=== PATIENT | female | born 1955 | race Caucasian/White ===

== ENCOUNTER → 2020-04-12 12:52 | Outpatient (CLI) | payer MEDICARE, SELFPAY ==
--- NOTE | ~2020-04-12 | XR_ITS ---
XR hip RT min 2V DATE: 04/12/2020 13:15 INDICATION: Right hip and groin pain for 3 months TECHNIQUE: AP, lateral, crosstable lateral views of right hip COMPARISON: None FINDINGS: No fracture or dislocation, avascular necrosis or bone destruction of the right hip is evid ent. Right hip joint space appears relatively preserved. The pubic symphysis and right sacroiliac joint are intact. IMPRESSION: No significant abnormality of the right hip Reviewed, dictated and finalized at location A.
== END ==
PROVIDERS: PCP Physician Assistant; Visit Provider Physician Assistant
DX: M25.551 Pain in right hip (principal)
CPT/HCPCS: 73502

== ENCOUNTER → 2020-04-25 14:47 | Outpatient (CLI) | payer MEDICARE, SELFPAY ==
--- NOTE | ~2020-04-25 | MM_ITS ---
EXAMINATION: MM screening chuyita BI w polly HISTORY: Screening mammogram TECHNIQUE: Craniocaudal and mediolateral oblique 3-D tomosynthesis images were obtained and synthetic 2-D images were generated. CAD analysis was submitted and interpreted. COMPARISON: , 10/12/2017, 09/25/2016 bilateral digital screening mammogram examinations BREAST PARENCHYMAL COMPOSITION: There are scattered areas of fibroglandular density. FINDINGS: There is no evidence of suspicious mass, calcification, or architectural distortion to sugg est malignancy in either breast. There has been no suspicious interval change. IMPRESSION: 1. No mammographic evidence of malignancy. 2. Recommend routine screening mammography in one year. BI-RADS Category 1: Negative Reviewed, dictated and finalized at location A.
== END ==
PROVIDERS: PCP Physician Assistant; Visit Provider Physician Assistant
DX: Z12.31 Encounter for screening mammogram for malignant neoplasm of breast (principal)
CPT/HCPCS: 77063; 77067

== ENCOUNTER → 2021-06-23 13:26 | Outpatient (CLI) | payer MEDICARE, SELFPAY ==
--- NOTE | ~2021-06-23 | DEXA_ITS ---
Bone Density Report Name: ACE MIJARES Age: 66 Sex: Female Ethnicity: White Date of : 1955 Indication: postmenopausal; screening for osteoporosis; height loss; hysterectomy; Referring Provider: Juliane Fishman Study: Bone densitometry was performed. Exam Date: June 23, 2021 Accession number: [id number] Bone Density: Region BMD T-score Z-score Classification AP Spine (L1, L4) 1.185 1.3 3.3 Normal Femoral Neck (Left) 0.650 -1.8 -0.2 Osteopenia Total Hip (Left) 0.960 0.1 1.5 Normal Femoral Neck (Right) 0.688 -1.5 0.2 Osteopenia Total Hip (Right) 0.905 -0.3 1.1 Normal Total Hip Mean 0.933 -0.1 1.3 Normal World Health Organization criteria for BMD impression classify patients as: Normal (T-score at or above -1.0), Osteopenia (T-score between -1.0 and -2.5), or Osteoporosis (T-score at or below -2.5). 10-year Fracture Risk(1): Major Osteoporotic Fracture 10% Hip Fracture 1.4% Reported Risk Factors: [place] (), Neck BMD=0.650, BMI=27.3 (1) FRAX(R) Version 3.08. Fracture probability calculated for an untreated patient. Fracture probability may be lower if the patient has received treatment. Previous Exams: Region Exam Age BMD T-score BMD Change BMD Change Date g/cm2 vs Baseline vs Previous AP Spine(L1, L4) 06/23/2021 66 1.185 1.3 0.033* 0.004 04/07/2019 64 1.181 1.3 0.029* -0.054* 04/24/2012 57 1.235 1.8 0.083* 0.083* 05/27/2009 54 1.152 1.0 Total Hip(Left) 06/23/2021 66 0.960 0.1 -0.140* -0.016 04/07/2019 64 0.976 0.3 -0.124* -0.073* 04/24/2012 57 1.049 0.9 -0.051* -0.051* 05/27/2009 54 1.100 1.3 Total Hip(Right) 06/23/2021 66 0.905 -0.3 -0.219* -0.004 04/07/2019 64 0.909 -0.3 -0.215* -0.135* 04/24/2012 57 1.044 0.8 -0.080* -0.080* 05/27/2009 54 1.124 1.5 *Denotes significance at 95% confidence level, LSC for AP Spine = 0.022 g/cm2, LSC for Total Hip = 0.027 g/cm2 Clinical Information Provided by Patient: Has used the following medications: Vitamin D Has the following medical conditions: Hysterectomy Patient maximum height was 64 Menopause Age: 44 Drinks caffeinated beverages Onset of menses at age 12 Number of children 0 Impression: The patient has low bone mass, based on the Left Femor
== END ==
PROVIDERS: PCP Physician Assistant; Visit Provider Obstetrics & Gynecology
DX: Z78.0 Asymptomatic menopausal state (principal); M85.89 Other specified disorders of bone density and structure, multiple sites
CPT/HCPCS: 77080

== ENCOUNTER → 2021-08-15 13:53 | Outpatient (CLI) | payer OTHER, SELFPAY ==
--- NOTE | ~2021-08-15 | MM_ITS ---
EXAMINATION: MM screening chuyita BI w polly HISTORY: Screening TECHNIQUE: Craniocaudal and mediolateral oblique 3-D tomosynthesis images were obtained and synthetic 2-D images were generated. CAD analysis was submitted and interpreted. COMPARISON: Comparison to multiple prior studies sequentially, with oldest reviewed study dated 05/07. BREAST PARENCHYMAL COMPOSITION: There are scattered areas of fibroglandular density. FINDINGS: There is no evidence of suspicious mass, calcification, or architectural distortion to sugg est malignancy in either breast. There has been no suspicious interval change. IMPRESSION: 1. No mammographic evidence of malignancy. 2. Recommend routine screening mammography in one year. BI-RADS Category 1: Negative Reviewed, dictated and finalized at location A. 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
== END ==
PROVIDERS: PCP Physician Assistant; Visit Provider Physician Assistant
DX: Z12.31 Encounter for screening mammogram for malignant neoplasm of breast (principal)
CPT/HCPCS: 77063; 77067

== ENCOUNTER 2021-08-29 01:17 | Day surgery (SDC) | payer OTHER, SELFPAY ==
[2021-08-22 12:43] VITALS: BMI 26.5
[2021-08-29 07:51] VITALS: BP 154/81; PULSE 81; RESP 18; TEMP 36.1; O2SAT 98
[2021-08-29] MEDS: LACTATED RINGERS 1,000 ML 150 ML IV CONT (08:15)
--- NOTE | 2021-08-29 08:26 | WPDGICN ---
Assessment and Plan Assessment and plan (1) Encounter for screening colonoscopy: Code(s): Z12.11 - Encounter for screening for malignant neoplasm of colon Status: Acute Assessment and Plan: Patient presents for screening colonoscopy. She appears to be at average risk for colon polyps. Further recommendations will be given after endoscopy. GI Consult Note Consult date/time: 08/29/21 08:26 HPI: Arabella Newby is a 66 year old female Presents for screening colonoscopy. Patient's current weight appetite and bowel movements are normal. She denies abdominal pain. She has had no bleeding. Family history is noncontributory. Review of Systems Review of Systems: All systems reviewed & are unremarkable except as noted in HPI and below PMFSH Past Medical History Medical History (Updated 08/29/21 @ 08:27 by Ken Olson MD) Calcific tendonitis of left shoulder Diabetes Diarrhea DJD of shoulder Hyperthyroidism Left shoulder pain Vision abnormalities Surgical History Surgical History History of carpal tunnel release Family History Family History Unknown Diabetes mellitus Hypertension Heart disease Social History Social History Smoking status: Never smoker Alcohol intake: current Drinks per week: 6 Substance use: never Substance use type: does not use Living arrangements: alone Gender identity (if verbalized by the patient): Female Spiritual care concerns: No Meds Home Medications and Allergies Home Medications Medication Instructions Recorded Confirmed Type empagliflozin 25 mg tablet 25 mg PO DAILY 03/29/20 08/29/21 History levothyroxine 88 mcg capsule 88 mcg PO DAILY 03/29/20 08/22/21 History rosuvastatin 10 mg sprinkle capsule 10 mg PO DAILY 03/29/20 08/22/21 History estradiol 1 applic VAGINAL 2XW 08/22/21 08/22/21 History Allergies Allergy/AdvReac Type Severity Reaction Status Date / Time No Known Allergies Allergy Verified 08/29/21 07:49 Vital Signs Vital Signs - 24 hr 08/29/21 07:51 Temperature 97 F L Pulse Rate 81 Respiratory Rate 18 Blood Pressure 154/81 H Pulse Oximetry 98 Exam Narrative: Physical exam reveals patient to be alert. Vital signs stable. HEENT exam is unremarkable. Patient is anicteric. Lungs are clear to auscultation and percussion. Heart is without murmur or extra sounds. Abdominal exam bowel sounds are present soft nontender with no organomegaly. Digital external rectal exam is normal.
--- NOTE | 2021-08-29 08:51 | WPDANESEPPF ---
Anes - Initial Pre Proc Eval Procedure: Operation Date: 08/29/21 09:00 Proposed Procedures p Screening Colonoscopy - Ken Olson MD Date/Time: 08/29/21 08:51 Surgeon: Ken Olson MD Pre Op Diagnosis: neoplasm screening Patient Data Age: 66 Gender: F Height: 1.57 m Weight: 66.1 kg Last Vital Signs Temp 97 F L 08/29/21 07:51 Pulse 81 08/29/21 07:51 Resp 18 08/29/21 07:51 BP 154/81 H 08/29/21 07:51 Pulse Ox 98 08/29/21 07:51 Allergies Allergy/AdvReac Type Severity Reaction Status Date / Time No Known Allergies Allergy Verified 08/29/21 07:49 Home Medications Medication Instructions Recorded Confirmed Type empagliflozin 25 mg tablet 25 mg PO DAILY 03/29/20 08/29/21 History levothyroxine 88 mcg capsule 88 mcg PO DAILY 03/29/20 08/22/21 History rosuvastatin 10 mg sprinkle capsule 10 mg PO DAILY 03/29/20 08/22/21 History estradiol 1 applic VAGINAL 2XW 08/22/21 08/22/21 History Patient hx anesthesia problems: none Family hx anesthesia problems: none Results Review: All pre-operative results and documents have been reviewed as part of the pre-operative evaluation. [facility] Past Medical History Medical History (Updated 08/29/21 @ 08:27 by Ken Olson MD) Calcific tendonitis of left shoulder Diabetes Diarrhea DJD of shoulder Hyperthyroidism Left shoulder pain Vision abnormalities Surgical History Surgical History History of carpal tunnel release Family History Family History Unknown Diabetes mellitus Hypertension Heart disease Social History Social History Smoking status: Never smoker Alcohol intake: current Drinks per week: 6 Substance use: never Substance use type: does not use Living arrangements: alone Gender identity (if verbalized by the patient): Female Spiritual care concerns: No Anes - Eval Final PreProcedure Day of Procedure 08/29/21 08:51 Patient weight: overweight Heart: regular rate and rhythm Lungs: clear to auscultation Airway: Mallampati scale class II Neurological: alert and oriented Last oral intake: >/= 8 hours ASA classification: III Emergent: no Anesthetic plan: proceed Anesthesia type and monitoring: general GIVS and standard monitoring Results Review: All pre-operative results and documents have been reviewed as part of the pre-operative evaluation. Informed Consent: The patient's anesthetic plan and its attendant risks and benefits were discussed with the patient/family/POA. Questions were solicited and answers provided to the satisfaction of the patient/family/POA.
[2021-08-29 09:34] VITALS: BP 95/53; PULSE 63; RESP 22; O2SAT 99
[2021-08-29 09:44] VITALS: BP 112/67; PULSE 64; RESP 20; O2SAT 98
[2021-08-29 09:54] VITALS: BP 123/69; PULSE 59; RESP 13; O2SAT 99
[2021-08-29 12:15] LABS: Glucose Point of Care 85 mg/dl (65-105)
== END 2021-08-29 10:02 | disposition home or self-care (01) ==
PROVIDERS: PCP Physician Assistant; Visit Provider Internal Medicine Gastroenterology
PROC: 0DJD8ZZ Inspection of Lower Intestinal Tract, Via Natural or Artificial Opening Endoscopic (ICD-10-PCS; CPT 45378; principal; 2021-08-29 09:00)
DX: Z12.11 Encounter for screening for malignant neoplasm of colon (principal); D12.5 Benign neoplasm of sigmoid colon; K63.5 Polyp of colon; K57.30 Diverticulosis of large intestine without perforation or abscess without bleeding; E11.9 Type 2 diabetes mellitus without complications; E05.90 Thyrotoxicosis, unspecified without thyrotoxic crisis or storm; Z79.84 Long term (current) use of oral hypoglycemic drugs
CPT/HCPCS: 45385; 82948; 88305; J2704; J7120

== ENCOUNTER → 2022-07-17 10:08 | Outpatient (CLI) | payer OTHER, SELFPAY ==
--- NOTE | ~2022-07-17 | XR_ITS ---
AP view of the pelvis Clinical history: Lumbago, sciatica Findings: No acute fracture or dislocation is seen. Osseous alignment is anatomic. Bilateral hip and SI joint spaces are preserved. Soft tissues are unremarkable. Impression: No significant abnormality is seen. Reviewed, dictated and finalized at location [] D TRAFFIC INVESTIGATOR Impression: No significant abnormality is seen.
--- NOTE | ~2022-07-17 | XR_ITS ---
Lumbosacral Spine: AP and lateral views Clinical History: Pain COMPARISON: 05/11/2008 No fracture identified. Probable minimal grade 1 retrolisthesis of L2 over L3. There is severe degene rative disc narrowing at L1-L2 and L2-L3. There are mild to moderate facet joint degenerative changes from L2-S1. The sacroiliac joints are normally outlined. Impression: Minimal grade 1 retrolisthesis of L2 over L3. Degenerative disc and facet joint changes, as detailed above, significantly progressed since prior ex am. Reviewed, dictated and finalized at location [] 7 INTERFACE DEVELOPER Impression: Minimal grade 1 retrolisthesis of L2 over L3. Degenerative disc and facet joint changes, as detailed above, significantly pro gressed since prior exam.
== END ==
PROVIDERS: PCP Physician Assistant; Visit Provider Physician Assistant
DX: M54.41 Lumbago with sciatica, right side (principal); G89.29 Other chronic pain; M48.061 Spinal stenosis, lumbar region without neurogenic claudication
CPT/HCPCS: 72100; 72170

== ENCOUNTER → 2022-10-12 13:12 | Outpatient (CLI) | payer OTHER, SELFPAY ==
--- NOTE | ~2022-10-12 | XR_ITS ---
XR hip RT min 2V DATE: 10/12/2022 13:58 INDICATION: Right hip pain TECHNIQUE: AP and lateral views COMPARISON: 07/17/2022 pelvis 04/12/2020 right hip FINDINGS: There is mild to moderate right hip joint space narrowing. No fracture or dislocation, avas cular necrosis or bone destruction. The pubic symphysis and sacroiliac joints are normally aligned. IMPRESSION: Mild right hip osteoarthritis Reviewed, dictated and finalized at location B. 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
--- NOTE | ~2022-10-12 | MR_ITS ---
MRI of the lumbar spine Clinical History: Back pain Technique: Axial T2-weighted images, and sagittal T1-weighted, T2-weighted, and T2 fat-sat images wer e acquired. COMPARISON: 10/27/2015 Findings: No acute fracture seen. Stable grade 1 retrolisthesis of L2 over L3. Minimal grade 1 retrol isthesis of L3 over L4 is new from prior exam. There are reactive marrow signal changes due to degene rative disc disease, predominantly at the L1-L2, L2-L3, L3-L4 disc spaces. At L1-L2, there is severe degenerative disc narrowing with minimal disc bulge. Facet arthropathy is p resent. No spinal canal stenosis or neural foraminal narrowing. At L2-L3, there is severe degenerative disc narrowing with facet arthropathy. There is minimal thecal sac compression. There is probable bilateral lateral recess stenosis. There is moderate right neural foraminal narrowing and minimal left neural foraminal narrowing. At L3-L4, there is disc bulge and facet arthropathy, with minimal central canal stenosis, as well as bilateral lateral recess stenosis. There is moderate to advanced left neural foraminal narrowing and mild right neural foraminal narrowing. At L4-L5, there is mild disc bulge with advanced facet arthropathy. No spinal canal stenosis or defin ite neural foraminal narrowing. At L5-S1, there is minimal disc bulge and mild facet arthropathy. No spinal canal stenosis or neural foraminal narrowing. Impression: Overall mild degenerative spondylosis, as detailed above. Grade 1 retrolisthesis of L2 over L3, and of L3 over L4. Reviewed, dictated and finalized at [facility]. H TRUCKER Impression: Overall mild degenerative spondylosis, as detailed above. Grade 1 retrolisthesis of L2 over L3, and of L3 over L4.
== END ==
PROVIDERS: PCP Physician Assistant; Visit Provider Anesthesiology Pain Medicine
DX: M54.50 Low back pain, unspecified (principal); M16.11 Unilateral primary osteoarthritis, right hip; M43.06 Spondylolysis, lumbar region
CPT/HCPCS: 72148; 73502

== ENCOUNTER → 2022-10-22 12:04 | Outpatient (CLI) | payer OTHER, SELFPAY ==
--- NOTE | ~2022-10-22 | MM_ITS ---
EXAMINATION: MM screening chuyita BI w polly HISTORY: Screening TECHNIQUE: Craniocaudal and mediolateral oblique 3-D tomosynthesis images were obtained and synthetic 2-D images were generated. CAD analysis was submitted and interpreted. COMPARISON: Comparison to multiple prior studies sequentially, with oldest reviewed study dated 04/2016. BREAST PARENCHYMAL COMPOSITION: Breast composed of scattered areas of fibroglandular density FINDINGS: The right breast is stable without evidence for malignancy. There are developing regional p unctate calcifications which are indeterminate, centered in the upper outer quadrant of the left [address]. IMPRESSION: 1. Developing regional calcifications upper outer quadrant of the left breast anteriorly. 2. Magnification views are recommended. BI-RADS Category 0: Incomplete: Needs additional imaging evaluation. Reviewed, dictated and finalized at location A. IMPRESSION: 1. Developing regional calcifications upper outer quadrant of the left breast a nteriorly. 2. Magnification views are recommended. BI-RADS Category 0: Incomplete: Needs additional imaging evaluation.
== END ==
PROVIDERS: PCP Physician Assistant; Visit Provider Physician Assistant
DX: Z12.31 Encounter for screening mammogram for malignant neoplasm of breast (principal); R92.8 Other abnormal and inconclusive findings on diagnostic imaging of breast
CPT/HCPCS: 77063; 77067

== ENCOUNTER → 2022-11-19 14:10 | Outpatient (CLI) | payer OTHER, SELFPAY ==
--- NOTE | ~2022-11-19 | MM_ITS ---
EXAMINATION: MM diagnostic mammo unilat LT HISTORY: Left breast calcifications on screening mammogram TECHNIQUE: Magnification views of the left breast were performed. CAD analysis was submitted and inte rpreted. COMPARISON: 10/22/2022, 08/15/2021, 04/25/2020 FINDINGS: Magnification views demonstrate grouped and fine linear branching fine pleomorphic calcific ations in the anterior middle third of the upper outer quadrant of the breast at the 1:00 to 2:00 loc ation spanning approximately 5 cm. No associated mass is identified. IMPRESSION: 1. Indeterminate right breast calcifications. 2. Stereotactic left breast biopsy is recommended. BI-RADS category 4, suspicious findings. Reviewed, dictated and finalized at location A.
== END ==
PROVIDERS: PCP Physician Assistant; Visit Provider Physician Assistant
DX: R92.8 Other abnormal and inconclusive findings on diagnostic imaging of breast (principal)
CPT/HCPCS: 77065

== ENCOUNTER → 2023-10-08 13:27 | Outpatient (CLI) | payer OTHER, SELFPAY ==
--- NOTE | ~2023-10-08 | XR_ITS ---
EXAMINATION:XR cervical spine 4-5V DATE: 10/08/2023 13:53 INDICATION: Neck pain TECHNIQUE: AP, lateral, and odontoid views of the cervical spine are provided. COMPARISON: None FINDINGS: There are 2 mm of anterolisthesis of C4 on C5 and 2 mm of retrolisthesis of C5 on C6. There are 4 mm of anterolisthesis of C7 on T1. The odontoid process is intact. No fracture is identified. There is severe loss of intervertebral disc space height at C5-6 and C6-7. The vertebral body heights are maintained. There is multilevel severe facet and uncovertebral joint osteoarthritis. Prevertebra l soft tissues are normal. IMPRESSION: 1. Severe cervical spondylosis without acute findings. Reviewed, dictated and finalized at location B. RER PIPELINE
== END ==
PROVIDERS: PCP Physician Assistant; Visit Provider Physician Assistant
DX: M43.02 Spondylolysis, cervical region (principal)
CPT/HCPCS: 72050

== ENCOUNTER → 2024-11-12 13:04 | Outpatient (CLI) | payer OTHER, SELFPAY ==
--- NOTE | ~2024-11-12 | XR_ITS ---
EXAMINATION: XR chest 2V 11/12/2024 13:42 INDICATION: Cough for 2 weeks PROCEDURE: Two-view chest COMPARISON: No prior studies for comparison. FINDINGS: The lungs are clear. The cardiomediastinal silhouette is within normal limits. There are no pleural effusions. There is no pneumothorax suspected. IMPRESSION: 1: NO ACUTE CARDIOPULMONARY DISEASE. Reviewed, dictated and finalized at location A.
== END ==
PROVIDERS: PCP Physician Assistant; Visit Provider Physician Assistant
DX: R05.9 Cough, unspecified (principal)
CPT/HCPCS: 71046

== ENCOUNTER 2025-01-19 14:05 | Outpatient (CLI) | payer OTHER, SELFPAY ==
--- NOTE | ~2025-01-19 | US_ITS ---
US arterial ankle brachial ind INDICATION: Cold feet. TECHNIQUE: Segmental pressures and plethysmographic and Doppler waveforms of the brachial and lower e xtremity arteries were obtained. COMPARISON: None. FINDINGS: Right and left brachial artery pressures of 158 mm Hg and 128 mm Hg, respectively, are discordant (no rmal difference <= 30 mmHg). The right ankle-brachial index (RAMONA) is 1.03 (normal >= 0.9-1.0). The right great toe-brachial index (TBI) is 0.53 (normal >= 0.60). The left RAMONA is 1.03. The left TBI is 0.54. IMPRESSION: 1. Discordant brachial artery pressures, suspicious for vascular disease. Recommend correlation with CT angiography of the great vessels and upper extremities. 2: Mildly decreased toe brachial indices consistent with peripheral arterial disease. Reviewed, dictated and finalized at location A. IMPRESSION: 1. Discordant brachial artery pressures, suspicious for vascular disease. Recom mend correlation with CT angiography of the great vessels and upper extremities . 2: Mildly decreased toe brachial indices consistent with peripheral arterial di sease.
--- OUTSIDE RECORDS SUMMARY | 2025-01-19 14:57 | XMS_ITS | Encounter Summary ---
Author Organization [facility] Healthcare Address [address] [place] [address] Care Team Providers Care Storage Wharfage Clerk Name Role Phone Renee Melo Primary Care Provider [phone] [place] MD Unavailable [phone] Encounter Details Date Type Department Care Team (Late st Contact Info) Description 11/24/2024 Results Follow-Up [facility] Family Medicine [address] [place] [address] Renee Melo PA [address] [place] [address] XR Chest PA Lateral 2 Views Social History Tobacco Use Types Packs/Day Years Used Date Smoking Tobacco: Never Smokeless Tobacco: Never Alcohol Use Standard Drinks/Week Comments Yes 0 (1 standard drink = 0.6 oz pur e alcohol) AUDIT-C Answer Date Recorded Q1: How often do you have a drink containing alc ohol? 2-4 times a month 11/09/2024 Q2: How many drinks containi ng alcohol do you have on a typical day when you are drinking? 1 or 2 11/09/2024 Q3: How often do you have si x or more drinks on one occasion? Never 11/09/2024 PHQ-2 Answer Date Recorded PHQ-2 Total Score (If total score is 3 or more points, staff should administer the PHQ-9) 0 11/09/2024 Personal Safety Answer Date Recorded Have you ever been in or are you currently in a harmful physical or emotional relationship or is someone making you feel afraid or unsafe? 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 She said she has no questions or concerns. She also wanted JORDON Duran to know she has her breast surgery next week. Does message need to be routed? Yes-FYI Only documented in this encounter Plan of Treatment Not on file documented as of this encounter Goals Goal Patient Goal Type Associated Problems Recent Progress Patient-Stated? Author CCM Chronic Pain Care Plan Chronic Care Management No change(10/01 12:46 PM FARM OPERATIONS TECHNICAL DIRECTOR) No Radha Inman, RN Note: Problem: Chronic Pain Goals: 1. Minimize further functional decline 2. Maximize quality of life 3. Control pain Strategies: - Activity/exercise program recommendation - Conservative stepwise pain medicine strategy with multi-disciplinary approach - Recommend healthy lifestyle strategies and compensatory methods as needed Reduce the likelihood of falling Lifestyle No Radha Inman, RN Note: Below are four things you can do to prevent falls: Begin an exercise program to improve your leg strength & balance Ask your doctor or pharmacist to review your medicines Get annual eye check-ups & update your eyeglasses Make your home safer by: Removing clutter & tripping hazards Putting railings on all stairs & adding grab bars in the bathroom Having good lighting, especially on stairs Contact your local community or senior center for information on exercise, fall prevention programs, or options for improving home safety. documented as of this encounter Visit Diagnoses Not on filedocumented in this encounter Additional Health Concerns Infection Onset Date Last Indicated Resolved Time MDR gram neg/ESBL 10/17/2023 10/17/2023 documented as of this encounter Care Teams Storage Wharfage Clerk Relationship Specialty Start Date End Date Renee Melo PA [address] [facility] [address] [place] [address] PCP - General Internal Medicine 02/16/19 [place] MD [address] [facility] [address] DIV IM [facility], [facility] [address] [place] [address] Surgeon Medical Oncology 09/03/24 documented as of this encounter
--- OUTSIDE RECORDS SUMMARY | 2025-01-19 14:57 | XMS_ITS | Encounter Summary ---
Author Organization [facility] Healthcare Address [address] [place] [address] Care Team Providers Care Volunteer Services Specialist Name Role Phone Renee Melo Primary Care Provider [phone] Reason for Visit * Diagnostic Imaging (Routine) - Closed Specialty Diagnoses / Procedures Referred By Contac t Referred To Contact Procedures Breast Imaging Screening Outside Reference Saurabh Belcher Jr., MD [address] [facility] [id number] [place] [address] Phone: tel: fax: Referral ID Status Reason Start Date Expiration Date Visits Re quested Visits Authorized [id number] Closed 03/21/2023 04/19/2024 1 1 Encounter Details Date Type Department Care Team (Late st Contact Info) Description 04/25/2020 Hospital Encounter [facility] [address] [place] [id number] Social History Tobacco Use Types Packs/Day Years Used Date Smoking Tobacco: Never Smokeless Tobacco: Never Alcohol Use Standard Drinks/Week Comments Yes 0 (1 standard drink = 0.6 oz pur e alcohol) AUDIT-C Answer Date Recorded Q1: How often do you have a drink containing alc ohol? 2-4 times a month 11/30/2024 Q2: How many drinks containi ng alcohol do you have on a typical day when you are drinking? 1 or 2 11/30/2024 Q3: How often do you have si x or more drinks on one occasion? Never 11/30/2024 PHQ-2 Answer Date Recorded PHQ-2 Total Score (If total score is 3 or more points, staff should administer the PHQ-9) 0 11/09/2024 Personal Safety Answer Date Recorded Have you ever been in or are you currently in a harmful physical or emotional relationship or is someone making you feel afraid or unsafe? 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 2-4 times a month 11/30/2024 8:01 AM Ktity Almanzar RN Q2: How many drinks containing alcohol do you have on a typical day when you are drinking? 1 or 2 11/30/2024 8:01 AM Kitty Almanzar RN Q3: How often do you have six or more drinks on one occasion? Never 11/30/2024 8:01 AM Kitty Almanzar RN documented as of this encounter Plan of Treatment Not on file documented as of this encounter Goals Goal Patient Goal Type Associated Problems Recent Progress Patient-Stated? Author CCM Chronic Pain Care Plan Chronic Care Management No change(10/01 12:46 PM [employer]) No Radha Inman RN Note: Problem: Chronic Pain Goals: 1. Minimize further functional decline 2. Maximize quality of life 3. Control pain Strategies: - Activity/exercise program recommendation - Conservative stepwise pain medicine strategy with multi-disciplinary approach - Recommend healthy lifestyle strategies and compensatory methods as needed Reduce the likelihood of falling Lifestyle No Radha Inman RN Note: Below are four things you [...] home safety. documented as of this encounter Procedures Procedure Name Priority Date/Time Associated Diagnosis Comments BREAST IMAGING MG SCREENING OUTSIDE REFERENCE Routine 04/25/2020 12:00 AM CDT documented in this encounter Results * Breast Imaging Screening Outside Reference (04/25/2020 12:00 AM CDT) Impressions RAD_MAMMO[facility] - 03/21/2023 8:38 AM CDT These images are for Reference purposes only and have not been reviewed by [facility] Radiology. There will be no report generated by a [facility] Radiologist. Narrative [facility]_MAMMO[facility] - 03/21/2023 8:38 AM CDT EXAMINATION: Images For Reference Purposes Only us Saurabh Belcher Jr., MD IMG MAMMO PROCEDURES Final Result [facility] documented in this encounter Visit Diagnoses Not on filedocumented in this encounter Additional Health Concerns Infection Onset Date Last Indicated Resolved Time MDR gram neg/ESBL 10/17/2023 10/17/2023 documented as of this encounter Care Teams Volunteer Services Specialist Relationship Specialty Start Date End Date Renee Melo PA [address] [place] [address] PCP - General Internal Medicine 02/16/19 documented as of this encounter
--- OUTSIDE RECORDS SUMMARY | 2025-01-19 14:57 | XMS_ITS | Encounter Summary ---
Author Organization [facility] Healthcare Address [address] [place] [address] Care Team Providers Care Clinical Assessment Manager Name Role Phone Unavailable Primary Care Provider Unavailabl e Reason for Visit * Diagnostic Imaging (Routine) - Closed Specialty Diagnoses / Procedures Referred By Sony t Referred To Contact Procedures Breast Imaging Screening Outside Reference Saurabh Belcher Jr., MD [address] [facility] [id number] [place] [address] Phone: tel: fax: Referral ID Status Reason Start Date Expiration Date Visits Re quested Visits Authorized [id number] Closed 03/21/2023 04/19/2024 1 1 Encounter Details Date Type Department Care Team (Late st Contact Info) Description 11/14/2018 Hospital Encounter [facility] [address] [place], [place] [id number] Social History Tobacco Use Types Packs/Day Years [...] on file Legal Sex Female 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 No / Unsure 10/26/2019 2:50 PM CDT documented as of this encounter Functional Status * Audit-C Score Answer Date of Assessment Author 2 11/30/2024 8:01 AM Pamela Almanzar RN * Question Answer Date of Assessment Author Q1: How often do you have a drink containing alcohol? 2-4 times a month 11/30/2024 8:01 AM Kitty Almanzar RN Q2: How many drinks containing [...] Type Associated Problems Recent Progress Patient-Stated? 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 Minimize further functional decline 2. Maximize quality of life 3. Control pain Strategies: - Activity/exercise program recommendation - Conservative stepwise pain medicine strategy with multi-disciplinary approach - Recommend healthy lifestyle strategies and compensatory methods as needed Reduce the likelihood of falling Lifestyle Radha Cummings RN Note: Below are four things you [...] BREAST IMAGING MG SCREENING OUTSIDE REFERENCE Routine 11/14/2018 12:00 AM CDT documented in this encounter Results * Breast Imaging Screening Outside Reference (11/14/2018 12:00 AM CDT) Impressions [facility] - 03/21/2023 8:38 AM CDT These images are for Reference purposes only and have not been reviewed by [facility] Radiology. There will be no report generated by a [facility] Radiologist. Narrative [facility]_MAMMO[facility] - 03/21/2023 8:38 AM [...]
--- OUTSIDE RECORDS SUMMARY | 2025-01-19 14:57 | XMS_ITS | Clinical Summary ---
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 1.5 mL 3 022 Active Additional Information Patient taking differently: 0.5 mg subcutaneous Weekly, Inject 0.25 mg every 7 days for 4 weeks, then increase to 0.5 mg every 7 days.Saturday mornings, Indications: type 2 diabetes mellitus, Informant: Self, Reported on 11/30/2024 cholecalciferol (VITAMIN D-3) 5,000 unit tabletIndications :Prevention of Vitamin D Deficiency,supple ment Take 1 tablet (5,000 Units total) by mouth every morning Active celecoxib (CeleBREX) 100 mg capsuleIndication s:Osteoarthritis of lumbar spine, unspecified spinal osteoarthritis complication status Take one capsule by mouth at 10am and one capsule at 10 pm 180 capsule 1 025 Active Additional Information Patient taking differently: 100 mg oral 2 times daily, Take one capsule by mouth at 10am and one capsule at 10 pm,Indications: Pain, Informant: Self, Reported on 11/30/2024 simethicone (GAS-X) 125 mg capsuleIndication s:Flatulence Take 1 capsule (125 mg total) by mouth every morning Active DULoxetine DR (CYMBALTA) 60 mg capsuleIndication s:Chronic pain syndrome Take 2 capsules (120 mg total) by mouth daily 180 capsule 1 Active levothyroxine (SYNTHROID) 88 mcg tabletIndications :Acquired hypothyroidism TAKE 1 TABLET BY MOUTH IN THE MORNING BEFORE BREAKFAST 90 tablet 025 Active rosuvastatin (CRESTOR) 40 mg tablet Take 1 tablet by mouth once daily 90 tablet 025 Active oxyCODONE (ROXICODONE) 5 mg immediate release tabletIndications :Pain Take 1 tablet (5 mg total) by mouth every 4 (four) hours as needed for pain 20 tablet 025 2024 Discontinued docusate sodium (DOK) 100 mg tabletIndications :constipation Take 1 tablet (100 mg total) by mouth 2 (two) times a day for 20 days 40 tablet 025 2024 Discontinued azithromycin (ZITHROMAX) 250 mg tablet TAKE 2 TABLETS BY MOUTH ON DAY 1, AND THEN TAKE 1 TABLET BY MOUTH ONCE A DAY ON DAY 2 THROUGH DAY 5 025 2024 Discontinued Active Problems Problem Noted Date Diagnosed Date Acquired absence of breast and absent nipple, bi lateral 11/30/2024 Cold feet 11/22/2024 Assessment & Plan (11/22/2024 8:05 PM CDT): Patient's feet are subjectively cold to her. They do look a little discolored but has good pulses. Denies Raynaud's symptoms. Recommend getting ABIs. Will continue to monitor Annual physical exam 11/22/2024 Assessment & Plan (11/22/2024 8:06 PM CDT): Encouraged healthy lifestyle, good nutrition and exercise. Encouraged Calcium and Vitamin D and weight bearing exercise for bone health. Reviewed immunizations Reviewed age appropirate screenings. Occipital neuralgia 10/01/2024 Myalgia, other site 10/01/2024 Sensorineural hearing loss (SNHL) of both ears 1 08/09/2023 Assessment & Plan (06/09/2024 10:45 AM FURNACE KEEPER): I think her hearing loss is probably due to her familial history as well as some noise exposure and aging. I think she would benefit from hearing aids. We talked quite a bit about that. I recommended that she also talk with our munitions worker. She possibly can get some coverage through her insurance. Tinnitus 05/22/2024 Assessment & Plan (06/09/2024 10:46 AM FURNACE KEEPER): I talked with the patient about tinnitus. Typically it is due to hearing loss but there are other potential reasons for it. It can occur due to cervical strain or TMJ disorder. Also potentially due to tumors which are usually benign. Unfortunately there is no widely accepted or successful treatment for it. There are a lot of twaw-cre-ddteigo remedies which generally do not help and I really do not recommend any of them. In her case I think that the tinnitus is likely due to her hearing loss. Probably would benefit from the use of hearing aids. She understands. She is intending to pursue that. Assessment & Plan (05/22/2024 1:22 PM CDT): This is a significant, separately identifiable problem that was evaluated and managed on the same day as the wellness exam Patient notes bilateral hearing loss that seems to be increasing. She is also noticing increased ringing on the right side. Has not had hearing tests. Will refer to Dr. Khoury's office for audiology evaluation further evaluation of the tendinous BMI 24.0-24.9, adult 05/19/2024 Assessment & Plan (11/09/2024 11:03 AM CDT): Weight/BMI is in healthy range. Continue healthy lifestyle to maintain. Assessment & Plan (09/16/2024 10:34 AM FURNACE KEEPER): Discussed the patient's BMI. The BMI is above average. BMI management plan is completed. BMI Follow-up includes: nutrition counseling, exercise counseling and education provided. Assessment & Plan (05/19/2024 11:32 AM CDT): Weight/BMI is in healthy range. Continue healthy lifestyle to maintain. 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 Assessment & Plan (09/27/2024 4:16 PM FURNACE KEEPER): Patient is having persistent neck pain but do not think she is really taking medications in a distribution that will help most consistently. Recommend the following timing of her pain medications. Follow up in 6-8 weeks to reassess or sooner for any other problems or concerns 10am Celebrex 200 Tylenol 650 Cymbalta 120 Neurontin 400 4pm Tylenol 650 (one or two) 10pm Celebrex 200 Tylenol 650 Neurontin 400 2-4am prn Tylenol 650 Neurontin 400 Assessment & Plan (05/22/2024 1:24 PM CDT): This is a significant, separately identifiable problem that was evaluated and managed on the same day as the wellness exam Persistent neck pain. Continue per pain management. Will increase her gabapentin to 300 b.I.d. to see if this helps with the pain she is also on Cymbalta which may give some relief Assessment & Plan (01/05/2024 1:07 AM CDT): Encouraged NSAIDS (if able to safely tolerate) or Tylenol. Will provide a few Tramadol to use for severe break thru pain. Topical preparations like Lidocaine patches, Biofreeze, ICYHOT etc as needed. Heat, stretching Persistent symptoms after physical therapy. Recommend MRI for further evaluation Infected breast tissue lei maker 10/11/2023 Cervicalgia 10/03/2023 Assessment & Plan (05/22/2024 1:22 PM CDT): This is a significant, separately identifiable problem that was evaluated and managed on the same day as the wellness exam Persistent neck pain. Continue per pain management. Will increase her gabapentin to 300 b.I.d. to see if this helps with the pain she is also on Cymbalta which may give some relief Assessment & Plan (10/03/2023 9:39 PM FURNACE KEEPER): This is a significant, separately identifiable problem that was evaluated and managed on the same day as the wellness exam Patient is complaining of persistent neck pain that really started back in the 70s and has had pain in the neck as well as upper shoulders for years. She is having significant arm and shoulder pain since the mastectomy. She is having pain with rotation flexion-extension of the neck. She has not been taking any type of anti-inflammatory. Recommend starting with neck x-rays and will follow-up pending those results. She could try meloxicam 7.5 daily to see if it begins to give a little relief. Reviewed risks benefits alternatives side effects and proper use. She may benefit from therapy but at this point will hold off until mastectomy heels well. Malignant neoplasm of left f emale breast, unspecified estrogen receptor status, unspecified site of breast 09/21/2023 Assessment & Plan (11/22/2024 8:02 PM CDT): Continue active management of her breast cancer. Mammogram is still being managed by Oncology. Assessment & Plan (05/22/2024 1:21 PM CDT): Patient with breast cancer. Recently diagnosed. Status post left mastectomy and right breast reduction. Healing well from the surgery. Continuing treatment/ Close surveillance with Oncology. Oncology continues to manage the mammogram Carcinoma in situ of left breast 06/03/2023 Medicare annual wellness visit, subsequent 04/23 Assessment & Plan (05/22/2024 1:24 PM CDT): Encouraged healthy lifestyle, good nutrition and exercise. Encouraged Calcium and Vitamin D and weight bearing exercise for bone health. Reviewed immunizations. Reviewed age appropirate screenings. Medicare Wellness Documentation is completed within the chart Assessment & Plan (04/23/2023 8:01 PM CDT): Encouraged healthy lifestyle, good nutrition and exercise. Encouraged Calcium and Vitamin D and weight bearing exercise for bone health. Reviewed immunizations. Reviewed age appropirate screenings. Medicare Wellness Documentation is completed within the chart DCIS (ductal carcinoma in situ) 04/11/2023 Assessment & Plan (10/03/2023 9:37 PM FURNACE KEEPER): Continue per plastics at [facility] and Oncology. She is continuing to heal after her left mastectomy. Assessment & Plan (04/23/2023 7:55 PM CDT): Continue to work with [facility] surgical oncologist as well as plastics for further evaluation and treatment of her DCIS Assessment & Plan (04/11/2023 10:14 PM CDT): Continue per surgeon. She is being referred to specialist at [facility] as she is had persistent positive margins after lumpectomy Chronic pain syndrome 04/11/2023 Assessment & Plan (04/11/2023 10:16 PM CDT): Patient continues to complain of chronic all over pain. She is seen pain management but had to stop when working up the breasts. She is been seeing Dr. Flores for shoulder injections. Discussed Cymbalta for use with chronic pain. Reviewed risks benefits alternatives side effects and proper use. She is willing to try. Will start at 30 mg and titrate up as tolerated. Chronic midline low back pain with right-sided s ciatica 07/08/2022 Assessment & Plan (04/23/2023 7:58 PM CDT): This is a significant, separately identifiable problem that was evaluated and managed on the same day as the wellness exam Patient is seen some improvement with the addition of the Cymbalta 30. Still feels like the room for improvement so will increase to the 60. Continue with pain management She is using tramadol 50mg 1 tablet p.r.n. for breakthrough pain. #30 is lasting her 60-90 days. Patient has chronic pain and is on a chronic opioid. Discussed importance of taking medication as prescribed and pain is currently controlled with no abuse. Continue same dose Do not share medications. Followup for urine drug testing as instructed. Keep followup appointments as instructed. She is already seeing Pain Management. Assessment & Plan (10/24/2022 10:42 PM CDT): This is a significant, separately identifiable problem that was evaluated and managed on the same day as the wellness exam Persistent back pain. Following with pain management. Awaiting MRI results to create a plan. She discussed multiple times how much pain she is in. Discussed that pain management is really utilizing multiple different means of pain control. She does admit to increased stress so discussed adding duloxetine for pain control as well as mood control. She is in favor. Reviewed risks benefits alternatives side effects and proper use. Start 30 mg daily. Follow-up in 6-8 weeks to reassess may increase at that time if appropriate Assessment & Plan (07/08/2022 12:22 AM FURNACE KEEPER): Encouraged NSAIDS (if able to safely tolerate) or Tylenol. Topical preparations like Lidocaine patches, Biofreeze, ICYHOT etc as needed. Heat, stretching Avoid long periods of sitting/laying. Check xrays Encouraged PT and order provided Followup if has any problems controlling bowels or bladder or if sxs worsen. Age-related nuclear cataract of both eyes 2021 Assessment & Plan (06/22/2022 11:28 AM FURNACE KEEPER): Mild, observe. Symptomatic at night time but does not interfere with activities. Fatigue 05/06/2022 Assessment & Plan (09/27/2024 4:15 PM FURNACE KEEPER): Probably multifactorial. Check labs and followup to re-evaluate Assessment & Plan (10/03/2023 9:38 PM FURNACE KEEPER): Probably multifactorial. Check labs and followup to re-evaluate Assessment & Plan (04/11/2023 10:15 PM CDT): Probably multifactorial. Check labs and followup to re-evaluate Assessment & Plan (10/24/2022 10:41 PM CDT): Probably multifactorial. Check labs and followup to re-evaluate Assessment & Plan (05/06/2022 7:25 PM CDT): Probably multifactorial. Check labs and followup to re-evaluate Vitreomacular adhesion of left eye 03/16/2022 Assessment & Plan (06/22/2022 11:34 AM FURNACE KEEPER): VMT with lamellar hole OS Doing well - VA remains excellent and nearly asymptomatic- mild blurry vision OU at night time. 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 These could be age is congenital small drusen and they currently show no features of progression to definitive age-related macular degeneration. PVD (posterior vitreous detachment), bilateral 0 12/15/2021 Assessment & Plan (03/16/2022 11:02 AM CDT): VMT with lamellar hole OS [place] Va will observe do not recommend surgery Amsler Taper PF and stop keto Assessment & Plan (12/15/2021 10:32 AM CDT): She has partial posterior vitreous separations in both eyes with central foveal attachment. In the left eye the foveal attachment is associated with some traction and lamellar schisis changes in the fovea. Given the mild nature of the pathology in the relatively good vision, we will continue observation for now with Amsler grid monitoring. Lamellar macular hole of left eye 11/09/2021 Assessment & Plan (01/18/2023 12:43 PM CDT): VMT with lamellar hole and excellent vision She will monitor with Amsler And see Dr Du Schneider Assessment & Plan (01/26/2022 10:30 AM CDT): VMT OS associated with central cyst. BCVA 20/20 today. Stable OCT today. Cont PF/ketorolac OS 4x/day. Assessment & Plan (12/15/2021 10:33 AM CDT): I have discussed given the vitreomacular traction and the lamella changes possibly treating with prednisolone and ketorolac to see if this might be of some benefit. We will do this for for the next few weeks and repeat an OCT. Assessment & Plan (11/09/2021 1:54 PM CDT): VMT with pseudohole like appearance on OCT. Excellent BCVA today, 20/25 pin hole OS Patient is symptomatic, noticing worsening vision especially at near Educated and reassured patient of findings Will refer to retina for consult RTC with me PRN AMD (age-related macular degeneration), ivonne yang 11/09/2021 Assessment & Plan (10/03/2023 9:37 PM FURNACE KEEPER): Continue per Ophthalmology. Patient states her symptoms have been stable Assessment & Plan (01/26/2022 10:29 AM CDT): Small drusen. Cont observation. Assessment & Plan (11/09/2021 1:58 PM CDT): With very mild drusen OS > OD Extra-macular drusen OU as well No CNVM OU Educated on findings, AREDS Excellent BCVA OU Monitor Osteopenia 06/25/2021 History of UTI 02/25/2020 Assessment & Plan (02/27/2020 8:36 PM CDT): Recheck urine culture Vitamin D deficiency 07/16/2019 Assessment & Plan (11/22/2024 7:57 PM CDT): Supplement Assessment & Plan (10/03/2023 9:37 PM FURNACE KEEPER): Supplement Assessment & Plan (04/11/2023 10:15 PM CDT): Supplement Assessment & Plan (03/02/2021 1:10 PM CDT): supplement Assessment & Plan (08/30/2020 11:00 PM FURNACE KEEPER): supplement Assessment & Plan (02/27/2020 8:36 PM CDT): supplement Assessment & Plan (10/26/2019 4:12 PM CDT): supplement Assessment & Plan (07/19/2019 7:33 PM FURNACE KEEPER): supplement Sciatica of left side 07/16/2019 Assessment & Plan (05/22/2024 1:24 PM CDT): Patient has intermittent sciatica. She is on gabapentin which will help her neck as well as sciatica Assessment & Plan (02/27/2020 8:35 PM CDT): Improved. Will monitor Assessment & Plan (07/19/2019 7:33 PM FURNACE KEEPER): Continue NSAID, even if otc. Offered PT, but she isn't interested. Call if sxs worsen or don't improve. Moderate episode of recurrent major depressive d isorder 03/08/2019 Assessment & Plan (11/22/2024 8:00 PM CDT): Continue Cymbalta 60 mg b.i.d. symptoms are stable Assessment & Plan (05/22/2024 1:20 PM CDT): Stable with Cymbalta Assessment & Plan (10/03/2023 9:37 PM FURNACE KEEPER): Patient's depression symptoms have been stable. She declines returning to any medicine as she has been doing well without it. Assessment & Plan (04/23/2023 7:56 PM CDT): Patient's depression had been pushing towards remission. Still has some mild symptoms we added the Cymbalta for pain control but seems to be also helping with depression and or sleep disturbances as the results of the depression. Will continue with Cymbalta 60 and continue to monitor closely Assessment & Plan (04/11/2023 10:15 PM CDT): Patient's depression has been stable without medication. She is still having quite a bit of pain so will restart Cymbalta for pain. See chronic pain for more information Assessment & Plan (05/06/2022 7:24 PM CDT): Patient's symptoms are still stable without medication. Will continue to monitor. Continue healthy lifestyle. Assessment & Plan (03/02/2021 1:14 PM CDT): Continued stability without medication Assessment & Plan (08/30/2020 11:01 PM FURNACE KEEPER): Still stable without medication Assessment & Plan (02/27/2020 8:38 PM CDT): Stable without medication. Will continue to monitor. Assessment & Plan (10/26/2019 4:11 PM CDT): weened off the antidepressants. Feeling good. Continue to monitor. Assessment & Plan (07/19/2019 7:35 PM FURNACE KEEPER): Stable with Lexapro Assessment & Plan (04/01/2019 9:08 PM CDT): See anxiety Assessment & Plan (03/08/2019 1:18 AM CDT): Discussed depression at length. Will start Lexapro 10mg. Reviewed risks, benefit, alternatives, side effects and proper use. Will provide a very short supply of Xanax to use sparingly until the Lexapro starts to help. Type 2 diabetes mellitus wit h other circulatory complications 03/01/2019 Assessment & Plan (11/22/2024 8:03 PM CDT): Stressed importance of continued A1c control to minimize the termite control service representative effects of diabetes. Bring accuchecks to office when instructed to do so. Check A1c about every 3-6 months. Take medication as prescribed. Get annual eye exam. Encouraged NASIR/Statin if able to tolerate. Encouraged weight control and encouraged diabetic diet and exercise. A1c in October of 2024 was 7.1 See cold feet Patient would like to see a certified adaptive physical educator to assist in diet choices Continue Ozempic 0.5 mg weekly Assessment & Plan (09/27/2024 4:14 PM FURNACE KEEPER): Stressed importance of continued A1c control to minimize the termite control service representative effects of diabetes. Bring accuchecks to office when instructed to do so. Check A1c about every 3-6 months. Take medication as prescribed. Get annual eye exam. Encouraged NASIR/Statin if able to tolerate. Encouraged weight control and encouraged diabetic diet and exercise. Due to check labs. Patient is to continue with her Ozempic 0 0.5 mg q.week Assessment & Plan (05/22/2024 1:20 PM CDT): Encouraged patient to follow low fat/low chol diet like the Mediterranean diet. Increase good fats in the diet. Increase exercise. Monitor labs as needed. Continue Crestor 40 mg Assessment & Plan (10/03/2023 9:38 PM FURNACE KEEPER): Encouraged patient to follow low fat/low chol diet like the Mediterranean diet. Increase good fats in the diet. Increase exercise. Monitor labs as needed. Continue Crestor Assessment & Plan (04/23/2023 7:58 PM CDT): Encouraged patient to follow low fat/low chol diet like the Mediterranean diet. Increase good fats in the diet. Increase exercise. Monitor labs as needed. Stressed importance of continued A1c control to minimize the termite control service representative effects of diabetes. Bring accuchecks to office when instructed to do so. Check A1c about every 3-6 months. Take medication as prescribed. Get annual eye exam. Encouraged NASIR/Statin if able to tolerate. Encouraged weight control and encouraged diabetic diet and exercise. Continue statin and Trulicity 0.75mg/week Assessment & Plan (04/11/2023 10:14 PM CDT): Encouraged patient to follow low fat/low chol diet like the Mediterranean diet. Increase good fats in the diet. Increase exercise. Monitor labs as needed. Continue Crestor Assessment & Plan (10/24/2022 10:40 PM CDT): Encouraged patient to follow low fat/low chol diet like the Mediterranean diet. Increase good fats in the diet. Increase exercise. Monitor labs as needed. Continue Crestor 40 Assessment & Plan (05/06/2022 7:24 PM CDT): Encouraged patient to follow low fat/low chol diet like the Mediterranean diet. Increase good fats in the diet. Increase exercise. Monitor labs as needed. Continue Crestor Assessment & Plan (12/02/2021 8:32 PM CDT): Encouraged patient to follow low fat/low chol diet like the Mediterranean diet. Increase good fats in the diet. Increase exercise. Monitor labs as needed. Continue simvastatin Assessment & Plan (08/26/2021 5:03 PM FURNACE KEEPER): Encouraged patient to follow fat/low chol diet like the Mediterranean diet. Increase good fats in the diet. Increase exercise. Monitor labs as needed. Continue simvastatin 80 Assessment & Plan (03/02/2021 1:14 PM CDT): This is a significant, separately identifiable problem that was evaluated and managed on the same day as the wellness exam Encouraged patient to follow fat/low chol diet like the Mediterranean diet. Increase good fats in the diet. Increase exercise. Monitor labs as needed. Still not well controlled. Stop the simvastatin and change to Crestor. Recheck labs in 4 months. Assessment & Plan (08/30/2020 11:01 PM FURNACE KEEPER): Encouraged patient to follow fat/low chol diet like the Mediterranean diet. Increase good fats in the diet. Increase exercise. Monitor labs as needed. Continue statin Assessment & Plan (02/27/2020 8:38 PM CDT): Encouraged patient to continue low fat/low chol diet. Continue exercise. Increase good fats in the diet. Monitor labs as needed. Continue statin Assessment & Plan (10/26/2019 3:08 PM CDT): Stressed importance of continued A1c control to minimize the termite control service representative effects of diabetes. Bring accuchecks to office when instructed to do so. Check A1c about every 3-6 months. Take medication as prescribed. Get annual eye exam. Encouraged NASIR/Statin if able to tolerate. Encouraged weight control and encouraged diabetic diet and exercise. Continue jardiance. Metformin 1gm bid --- may decrease to one daily Assessment & Plan (07/19/2019 7:35 PM FURNACE KEEPER): Encouraged patient to continue low fat/low chol diet. Continue exercise. Increase good fats in the diet. Monitor labs as needed. Continue statin. Change from crestor to simvastatin due to cost/insurance change. Assessment & Plan (04/01/2019 9:06 PM CDT): Stressed importance of continued A1c control to minimize the fci effects of diabetes. Bring accuchecks to office when instructed to do so. Check A1c about every 3-6 months. Take medication as prescribed. Get annual eye exam. Encouraged NASIR/Statin if able to tolerate. Encouraged weight control and encouraged diabetic diet and exercise. Encouraged patient to continue low fat/low chol diet. Continue exercise. Increase good fats in the diet. Monitor labs as needed. Continue Crestor Type 2 diabetes mellitus wit hout complication, without long-term current use of insulin 12/18/2016 Overview (08/06/2023): improved Assessment & Plan (11/22/2024 8:04 PM CDT): Stressed importance of continued A1c control to minimize the fci effects of diabetes. Bring accuchecks to office when instructed to do so. Check A1c about every 3-6 months. Take medication as prescribed. Get annual eye exam. Encouraged NASIR/Statin if able to tolerate. Encouraged weight control and encouraged diabetic diet and exercise. A1c is well controlled at 7.1 Assessment & Plan (05/22/2024 1:19 PM CDT): Stressed importance of continued A1c control to minimize the termite control service representative effects of diabetes. Bring accuchecks to office when instructed to do so. Check A1c about every 3-6 months. Take medication as prescribed. Get annual eye exam. Encouraged NASIR/Statin if able to tolerate. Encouraged weight control and encouraged diabetic diet and exercise. Tightly controlled with the Ozempic 0.5 mg per week Assessment & Plan (10/03/2023 9:37 PM FURNACE KEEPER): Stressed importance of continued A1c control to minimize the fci effects of diabetes. Bring accuchecks to office when instructed to do so. Check A1c about every 3-6 months. Take medication as prescribed. Get annual eye exam. Encouraged NASIR/Statin if able to tolerate. Encouraged weight control and encouraged diabetic diet and exercise. Last A1c was 6.2 and very tightly controlled on the Ozempic 0.5 mg per week Assessment & Plan (04/23/2023 7:59 PM CDT): Stressed importance of continued A1c control to minimize the fci effects of diabetes. Bring accuchecks to office when instructed to do so. Check A1c about every 3-6 months. Take medication as prescribed. Get annual eye exam. Encouraged NASIR/Statin if able to tolerate. Encouraged weight control and encouraged diabetic diet and exercise. 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 Bring accuchecks to office when instructed to do so. Check A1c about every 3-6 months. Take medication as prescribed. Get annual eye exam. Encouraged NASIR/Statin if able to tolerate. Encouraged weight control and encouraged diabetic diet and exercise. Continue Ozempic 0.5 mg per week. A1c has been at goal. 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 Bring accuchecks to office when instructed to do so. Check A1c about every 3-6 months. Take medication as prescribed. Get annual eye exam. Encouraged NASIR/Statin if able to tolerate. Encouraged weight control and encouraged diabetic diet and exercise. A1c is due. She has been well controlled in the recent past. Continue Ozempic 0.5 weekly Assessment & Plan (05/06/2022 7:25 PM CDT): This is a significant, separately identifiable problem that was evaluated and managed on the same day as the wellness exam Stressed importance of continued A1c control to minimize the fci effects of diabetes. Bring accuchecks to office when instructed to do so. Check A1c about every 3-6 months. Take medication as prescribed. Get annual eye exam. Encouraged NASIR/Statin if able to tolerate. Encouraged weight control and encouraged diabetic diet and exercise. Patient is not tolerating the Jardiance due to yeast infections. She has not tolerated metformin due to GI symptoms. Will start her on Ozempic. Reviewed risks benefits alternatives side effects and proper use. Demonstrated her proper use and she was able to repeat this back. Will send new prescription and also provided paperwork to see if she qualifies for patient assistance. Follow-up in 3 months to recheck labs. 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 Bring accuchecks to office when instructed to do so. Check A1c about every 3-6 months. Take medication as prescribed. Get annual eye exam. Encouraged NASIR/Statin if able to tolerate. Encouraged weight control and encouraged diabetic diet and exercise. Well controlled with the Jardiance 25 mg. Continue to monitor closely Assessment & Plan (08/26/2021 5:03 PM FURNACE KEEPER): Stressed importance of continued A1c control to minimize the fci effects of diabetes. Bring accuchecks to office when instructed to do so. Check A1c about every 3-6 months. Take medication as prescribed. Get annual eye exam. Encouraged NASIR/Statin if able to tolerate. Encouraged weight control and encouraged diabetic diet and exercise. Continue Jardiance 25 Assessment & Plan (03/02/2021 1:09 PM CDT): Stressed importance of continued A1c control to minimize the termite control service representative effects of diabetes. Bring accuchecks to office when instructed to do so. Check A1c about every 3-6 months. Take medication as prescribed. Get annual eye exam. Encouraged NASIR/Statin if able to tolerate. Encouraged weight control and encouraged diabetic diet and exercise. Tightly controlled with Jardiance. If A1c is still great, will completely stop the metformin. Assessment & Plan (08/30/2020 11:03 PM FURNACE KEEPER): This is a significant, separately identifiable problem that was evaluated and managed on the same day as the wellness exam Stressed importance of continued A1c control to minimize the termite control service representative effects of diabetes. Bring accuchecks to office when instructed to do so. Check A1c about every 3-6 months. Take medication as prescribed. Get annual eye exam. Encouraged NASIR/Statin if able to tolerate. Encouraged weight control and encouraged diabetic diet and exercise. Continue jardiance. Decrease the metformin to 500mg daily. Will reassess in 6 months and if still below 7 may be able to stop the metformin and just use the Jardiance. Assessment & Plan (02/27/2020 8:38 PM CDT): Stressed importance of continued A1c control to minimize the termite control service representative effects of diabetes. Bring accuchecks to office when instructed to do so. Check A1c about every 3-6 months. Take medication as prescribed. Get annual eye exam. Encouraged NASIR/Statin if able to tolerate. Encouraged weight control and encouraged diabetic diet and exercise. Has been well controlled. Pt is concerned that the A1c increased slighlty. Reviewed that goal is below 7 and pushing lower doesn't decrease morbidity or mortality. Will await labs. Continue jardiance and MEtformin Assessment & Plan (10/26/2019 4:11 PM CDT): See DM hyperlipidemia. Assessment & Plan (07/19/2019 7:35 PM FURNACE KEEPER): Stressed importance of continued A1c control to minimize the fci effects of diabetes. Bring accuchecks to office when instructed to do so. Check A1c about every 3-6 months. Take medication as prescribed. Get annual eye exam. Encouraged NASIR/Statin if able to tolerate. Encouraged weight control and encouraged diabetic diet and exercise. Check labs. Continue metformin and Jardiance Assessment & Plan (04/01/2019 9:06 PM CDT): Stressed importance of continued A1c control to minimize the termite control service representative effects of diabetes. Bring accuchecks to office when instructed to do so. Check A1c about every 3-6 months. Take medication as prescribed. Get annual eye exam. Encouraged NASIR/Statin if able to tolerate. Encouraged weight control and encouraged diabetic diet and exercise. Acquired hypothyroidism 12/18/2016 Overview (05/24/2023): replaced Assessment & Plan (11/22/2024 8:01 PM CDT): Continue levothyroxine 88 mcg. Monitor labs. Assessment & Plan (09/27/2024 4:15 PM FURNACE KEEPER): Continue levothyroxine 88 mcg. Monitor labs. Assessment & Plan (05/22/2024 1:20 PM CDT): Continue levothyroxine 88 mcg. Monitor labs. Assessment & Plan (10/03/2023 9:38 PM FURNACE KEEPER): Continue levothyroxine. Monitor labs. Assessment & Plan (04/23/2023 7:56 PM CDT): Continue levothyroxine. Monitor labs. Assessment & Plan (04/11/2023 10:14 PM CDT): Continue levothyroxine. Monitor labs. Assessment & Plan (10/24/2022 10:40 PM CDT): Continue levothyroxine. Monitor labs. Assessment & Plan (12/02/2021 8:32 PM CDT): Continue levothyroxine. Monitor labs. Assessment & Plan (08/26/2021 5:03 PM FURNACE KEEPER): Continue levothyroxine Assessment & Plan (03/02/2021 1:10 PM CDT): Continue levothyroxine. Monitor labs. Assessment & Plan (08/30/2020 11:01 PM FURNACE KEEPER): Continue levothyroxine Assessment & Plan (02/27/2020 8:38 PM CDT): Continue replacement. Check labs Assessment & Plan (10/26/2019 3:12 PM CDT): TSh is suppressed. Decreased to 88mcg daily Assessment & Plan (07/19/2019 7:33 PM FURNACE KEEPER): Continue levothyroxine. Check labs Assessment & Plan (04/01/2019 9:05 PM CDT): TSH is stable continue the levothyroxine at 100 mcg Osteoarthritis of lumbar spine 12/18/2016 Overview (08/06/2023): Was seeing [facility] Assessment & Plan (02/27/2020 8:37 PM CDT): Stable after working with [facility] Assessment & Plan (04/01/2019 9:05 PM CDT): Had been following with pain management. She currently is choosing not to. Encouraged to continue anti-inflammatory and use Ultram only sparingly. She is on a combination of Ultram and Soma. Discussed the risks of combining these medications in addition to a benzodiazepine with its black box warning. Discussed alternative to Soma but at this point she will not make any changes. Glycosuria 11/07/2016 Overview (05/24/2023): Glycosuria;Recorded Elsewhere: No Location: [facility] Source: EHR Chronic: N Practice ID: [id number] Billable Time: 11:30:00 AM Menopausal symptom 05/28/2014 Overview (08/06/2023): Menopausal symptoms;Recorded Elsewhere: No Location: [facility] Source: EHR Chronic: N Practice ID: [id number] Billable Time: 01:00:00 PM Assessment & Plan (02/27/2020 8:41 PM CDT): Check DXA Resolved Problems Problem Noted Date Diagnosed Date Resolved Date Acute cough 06/24/2024 09/27/2024 Acute cough 06/24/2024 09/27/2024 Assessment & Plan (06/24/2024 12:20 PM FURNACE KEEPER): Due to length of time will send azithromycin, medrol dose robin and benzonatate to patient pharmacy. If symptoms worsen or do not improve recommend in person evaluation. Patient verbalized understanding and agreed to plan of care at this time. Need for influenza vaccination 05/22/2024 11/22/2024 Aftercare following surgery for neoplasm 01/20/2024 05/22/2024 Positive depression screening 09/17/2023 10/03/2023 Abnormal mammogram 10/24/2022 Assessment & Plan (10/24/2022 10:43 PM CDT): This is a significant, separately identifiable problem that was evaluated and managed on the same day as the wellness exam Abnormal mammogram. Calcifications in the upper-outer quadrant of the left breast. Reviewed these results with patient. Will order diagnostic mammogram with ultrasound to follow if needed. Discussed if negative will return to recommended screenings. If an area is identified and she needs biopsy discussed interventional radiology versus referral to surgeon. She prefers the route of the surgeon. Will await results. BMI 26.0-26.9,adult 05/06/2022 10/25/19 Assessment & Plan (07/08/2022 12:22 AM FURNACE KEEPER): Weight/BMI is in healthy range. Continue healthy lifestyle to maintain. Assessment & Plan (05/06/2022 7:25 PM CDT): Weight/BMI is in healthy range. Continue healthy lifestyle to maintain. Medicare annual wellness visit, subsequent 05/06/2022 10/24/2022 Assessment & Plan (05/06/2022 7:25 PM CDT): Encouraged healthy lifestyle, good nutrition and exercise. Encouraged Calcium and Vitamin D and weight bearing exercise for bone health. Reviewed immunizations. Reviewed age appropirate screenings. Medicare Wellness Documentation is completed within the chart Annual physical exam 08/26/2021 Assessment & Plan (10/03/2023 9:38 PM FURNACE KEEPER): Encouraged healthy lifestyle, good nutrition and exercise. Encouraged Calcium and Vitamin D and weight bearing exercise for bone health. Reviewed immunizations Reviewed age appropirate screenings. Assessment & Plan (10/24/2022 10:41 PM CDT): Encouraged healthy lifestyle, good nutrition and exercise. Encouraged Calcium and Vitamin D and weight bearing exercise for bone health. Reviewed immunizations Reviewed age appropirate screenings. Assessment & Plan (08/26/2021 5:04 PM FURNACE KEEPER): Encouraged healthy lifestyle, good nutrition and exercise. Encouraged Calcium and Vitamin D and weight bearing exercise for bone health. Reviewed immunizations Reviewed age appropirate screenings. Vulvar itching 08/26/2021 10/24/2022 Assessment & Plan (12/02/2021 8:33 PM CDT): Patient has volar itching. Biopsy was done in June of 2021. According to the pathology it it appears as though this could be early lichen sclerosis. Patient states she was put on Lotrisone Estrace cream although the records show she was also put on clobetasol. She states she has never been on clobetasol. Instructed her to go ahead and stop the Lotrisone. She may start the clobetasol apply twice a day to clean skin and do that for the next few months. Will then reassess and if it appears as though improving then may be able to taper it back down. If this does not make a difference then will need to return back to the pastry sous chef for possible re-biopsy to determine why she is not responding to the clobetasol. Assessment & Plan (08/26/2021 7:01 PM FURNACE KEEPER): This is a significant, separately identifiable problem that was evaluated and managed on the same day as the wellness exam Patient has had vulvar itching. Saw the pastry sous chef in a vulvar biopsy was done in June of 2021. The by see showed possible early lichen sclerosis not being able to be ruled out but there was no carcinoma present or atypical lesions. She has not been on clobetasol. The pastry sous chef note alludes to her being on a but patient has not so I am going to start her on clobetasol to the area twice a day to clean skin. Will monitor closely for follow-up in a few months and if not noting improvement may refer to new pastry sous chef and/or consider re-biopsy. BMI 26.0-26.9,adult 03/02/2021 11/14/19 Assessment & Plan (08/26/2021 5:04 PM FURNACE KEEPER): Weight/BMI is in healthy range. Continue healthy lifestyle to maintain. Assessment & Plan (03/02/2021 11:20 AM CDT): Weight/BMI is in healthy range. Continue healthy lifestyle to maintain. Medicare annual wellness visit, subsequent 03/02/2021 08/26/2021 Assessment & Plan (03/02/2021 1:14 PM CDT): Encouraged healthy lifestyle, good nutrition and exercise. Encouraged Calcium and Vitamin D and weight bearing exercise for bone health. Reviewed immunizations. Reviewed age appropirate screenings. Medicare Wellness Documentation is completed within the chart BMI 24.0-24.9, adult 08/30/2020 021 Assessment & Plan (08/30/2020 2:25 PM FURNACE KEEPER): Weight/BMI is in healthy range. Continue healthy lifestyle to maintain. Annual physical exam 08/30/2020 021 Assessment & Plan (08/30/2020 11:01 PM FURNACE KEEPER): Encouraged healthy lifestyle, good nutrition and exercise. Encouraged Calcium and Vitamin D and weight bearing exercise for bone health. Reviewed immunizations Reviewed age appropirate screenings. Chronic left shoulder pain 08/30/2020 1 Assessment & Plan (08/30/2020 11:02 PM FURNACE KEEPER): This is a significant, separately identifiable problem that was evaluated and managed on the same day as the wellness exam Has been seeing Ortho. Had a few injections, but not getting consistent relief. Recommend PT. Order provided. Followup if sxs dont improve. Colon cancer screening 08/30/202010/24 Assessment & Plan (08/26/2021 7:00 PM FURNACE KEEPER): Has colonoscopy scheduled 08/[address] Olson Assessment & Plan (03/02/2021 1:10 PM CDT): Refer to Dr. Eason Assessment & Plan (08/30/2020 11:03 PM FURNACE KEEPER): Screening due with Dr. Olson. Will send referral. Right hip pain 02/27/2020 05/22/2024 Assessment & Plan (02/27/2020 8:40 PM CDT): This is a significant, separately identifiable problem that was evaluated and managed on the same day as the wellness exam New right groin/hip pain. Recommend xray to rule out true hip pain. Await results. Breast cancer screening by mammogram 02/27/2020 04/11/2023 Assessment & Plan (05/06/2022 7:24 PM CDT): Mammogram order provided Assessment & Plan (08/26/2021 5:03 PM FURNACE KEEPER): Mammogram order provided Assessment & Plan (03/02/2021 1:10 PM CDT): Mammogram order provided Assessment & Plan (08/30/2020 11:01 PM FURNACE KEEPER): Mammogram order provided Assessment & Plan (02/27/2020 8:42 PM CDT): Mammogram order provided Welcome to Medicare preventive visit 02/25/2020 08/30/2020 Assessment & Plan (02/27/2020 8:39 PM CDT): Encouraged healthy lifestyle, good nutrition and exercise. Encouraged Calcium and Vitamin D and weight bearing exercise for bone health. Reviewed immunizations. Reviewed age appropirate screenings. Medicare Wellness Documentation is completed within the chart EKG, eye exam and discussion about EOL completed. Breast cancer screening 10/26/201908/06 Assessment & Plan (02/27/2020 8:41 PM CDT): Mammogram order provided Assessment & Plan (10/26/2019 4:12 PM CDT): Mammogram order provided Other fatigue 07/19/2019 10/26/2019 Assessment & Plan (07/19/2019 7:36 PM FURNACE KEEPER): Probably multifactorial. Check labs and followup to re-evaluate Need for Tdap vaccination 04/01/2019 Assessment & Plan (04/01/2019 9:08 PM CDT): Updated in office today Annual physical exam 04/01/2019 019 Assessment & Plan (04/01/2019 9:07 PM CDT): Encouraged healthy lifestyle, good nutrition and exercise. Encouraged Calcium and Vitamin D and weight bearing exercise for bone health. Reviewed immunizations Reviewed age appropirate screenings. Anxiety 03/27/2019 10/26/2019 Assessment & Plan (07/19/2019 7:35 PM FURNACE KEEPER): Continue Lexapro Assessment & Plan (04/01/2019 9:09 PM CDT): This is a significant, separately identifiable problem that was evaluated and managed on the same day as the wellness exam Increase the Lexapro to 20 mg. Increase the BuSpar to 10 mg b.i.d. With an additional 1 available in the middle with a as needed. Encouraged to continue with the counseling. She is to call if she has increased increased symptoms. BMI 24.0-24.9, adult 03/02/2019 024 Overview (04/01/2019): Weight/BMI is in healthy range. Continue healthy lifestyle to maintain. Assessment & Plan (10/03/2023 9:38 PM FURNACE KEEPER): Weight/BMI is in healthy range. Continue healthy lifestyle to maintain. Assessment & Plan (02/27/2020 8:38 PM CDT): Weight/BMI is in healthy range. Continue healthy lifestyle to maintain. Assessment & Plan (10/26/2019 2:55 PM CDT): Weight/BMI is in healthy range. Continue healthy lifestyle to maintain. Weight/BMI is in healthy range. Continue healthy lifestyle to maintain. Assessment & Plan (04/01/2019 9:08 PM CDT): Weight/BMI is in healthy range. Continue healthy lifestyle to maintain. Assessment & Plan (03/02/2019 11:50 AM CDT): Weight/BMI is in healthy range. Continue healthy lifestyle to maintain. Hyperlipidemia 12/18/2016 12/02/2021 Overview (11/09/2021): controlled BMI 25.0-25.9,adult 12/18/2016 05/19/20 24 Assessment & Plan (01/05/2024 1:06 AM CDT): Weight/BMI is in healthy range. Continue healthy lifestyle to maintain. Assessment & Plan (03/25/2023 9:23 AM CDT): Weight/BMI is in healthy range. Continue healthy lifestyle to maintain. Overweight (BMI 25.0-29.9) 12/18/2016 0 09/17/2023 Assessment & Plan (04/23/2023 1:59 PM CDT): Weight/BMI is in healthy range. Continue healthy lifestyle to maintain. Obesity with body mass index 30 or greater 09/20/2015 10/03/2023 Overview (07/30/2023): Body mass index (BMI) 30.0-30.9, adult;Recorded Elsewhere: No Location: [facility] Source: EHR Chronic: N Practice ID: [id number] Billable Time: 03:00:00 PM Assessment & Plan (10/24/2022 1:19 PM CDT): Weight/BMI is in healthy range. Continue healthy lifestyle to maintain. Obesity 05/28/2014 10/03/2023 Overview (07/30/2023): Obesity, unspecified;Practice ID: [id number] Assessment & Plan (11/13/2021 9:44 AM CDT): Weight/BMI is in healthy range. Continue healthy lifestyle to maintain. Encounters Date Type Department Care Team Description 01/15/2025 Telephone [facility] [address] [place] [address] Renee Melo PA Medical Question/Miscellaneou s 01/14/2025 1:00 PM CDT Clinical Support [facility] [address] [place] [address] [id number] Type 2 diabetes mellitus without complication, without long-term current use of insulin (HCC) (Primary Dx) 01/01/2025 9:30 AM CDT Office Visit [facility] [address] [place] [address] Medicine 6th [place] [address] Josiah Reid MD Deformity of reconstructed breast (Primary Dx); Malignant neoplasm of left female breast, unspecified estrogen receptor status, unspecified site of breast (HCC) 12/16/2024 11:00 AM CDT Office Visit [facility] Medicine 6th [place] [phone] Malignant neoplasm of left female breast, unspecified estrogen receptor status, unspecified site of breast (HCC) (Primary Dx) 12/04/2024 Telephone [facility] [place] [address] Renee Melo PA Followup from recent sugery 11/30/2024 10:22 AM CDT Anesthesia Event [facility] Operating [facility] [address] [place] [phone] YoanaJean chapa MD McGowan, Jessica Lynn, NP 11/30/2024 10:10 AM CDT - 11/30/2024 1:15 PM CDT Surgery [facility] Operating Room [facility] [address] [place] [address] Josiah Reid MD REVISION BREAST LEFT 11/30/2024 7:35 AM CDT - 12/01/2024 2:51 PM CDT Hospital Encounter [facility] [address] [facility] [place] [address] Josiah Reid MD S/P breast reconstruction; Deformity and disproportion of reconstructed breast; Infection of breast tissue lei maker, subsequent encounter; Malignant neoplasm of left female breast, unspecified estrogen receptor status, unspecified site of breast (HCC); Acquired absence of left breast; Ductal carcinoma in situ (DCIS) of breast, unspecified laterality; Ductal carcinoma in situ (DCIS) of left breast Discharge Disposition: Discharge to home or self care 11/30/2024 Telephone [facility] [address] [place] [address] Road [address] [place] [phone] Renee Melo PA 11/27/2024 Telephone [facility] 6th [place] [address] Rosalina Lott Surgery Confirmation 11/24/2024 Results Follow-Up [facility] [address] [place] [phone] Renee Melo PA XR Chest PA Lateral 2 Views 11/12/2024 Telephone [facility] Medicine [address] [place] [address] Road [address] [place] [phone] Renee Melo PA Medical Question/Miscellaneou s 11/12/2024 Orders Only [facility] Medicine [address] [place] [address] Road [address] [place] [phone] Renee Melo PA Acute cough (Primary Dx) 11/09/2024 11:00 AM CDT Office Visit [facility] [address] [place] [address] Renee Melo PA Annual physical exam (Primary Dx); Type 2 diabetes mellitus without complication, without long-term current use of insulin (HCC); Cold feet; Type 2 diabetes mellitus with other circulatory complications (HCC); Malignant neoplasm of left female breast, unspecified estrogen receptor status, unspecified site of breast (HCC); Acquired hypothyroidism; Moderate episode of recurrent major depressive disorder (HCC); Vitamin D deficiency; Cervical myelopathy (HCC); BMI 24.0-24.9, adult 10/29/2024 Orders Only [facility] [address] [facility] [address] [place] [address] Saurabh Belcher Jr., MD Abnormal mammogram (Primary Dx) from Last 3 Months Immunizations Immunization Administration Dates Next Due Influenza, Quadrivalent, Hig h Dose, Preservative Free, Intrr 04/23/2022,05/31/2021,04/19/2020 Influenza, Quadrivalent, Spl it, Preservative Free, Intramuscular 06/02/2018 Influenza, Trivalent, High D ose, Split, Preservative Free, Intramuscular 05/19/2024,05/26/2019 Influenza, Unspecified 05/14/2023,2021,08/05/2021,05/31,07/04/2017 Moderna Sars-cov-2 Monovalen t Booster Vaccination (12+ YRS) 08/28/2023 Pfizer SARS-CoV-2 Monovalent Vaccination (12+ Yrs) STERN-READY TO USE 11/09/2021 Pfizer SARS-CoV-2 Monovalent Vaccination (12+ Yrs) PURPLE 05/31/2021,10/18/2020,09/26/2020 Pfizer Sars-Cov-2 Bivalent V accination (12+ YRS) 04/23/2022 Pneumococcal Conjugate PCV 13 05/26/2019 Pneumococcal Polysaccharide PPV23 08/01/2020 RSV Vaccine, Pref, Recombina nt, Subunit, Adjuvanted, PF, IM (Arexvy) 08/28/2023 Tdap 04/01/2019 ZOSTER Recombinant 02/07/2019,11/19/2018 Surgical History Surgery Date Site/Laterality Comments HYSTERECTOMY 07/05/2000 - 08/04/2000 CARPAL TUNNEL RELEASE 08/2009, 10/2009 Bilateral BREAST LUMPECTOMY 01/09/2023 Left BREAST LUMPECTOMY 02/18/2023 Left re-excision PLANTAR FASCIA RELEASE 08/05/1993 - 08/04/1994 Left INSERTION OF TISSUE BROOCH AND BRACELET MAKER AFTER MASTECTOMY 07/05/2023 - 08/04/2023 Left US GUIDED ASPIRATION ABSCESS HEMATOMA CYST SOFT TISSUE 09/19/2023 MASTECTOMY 07/05/2023 Left Medical History Medical History Date Comments Diabetes mellitus (HCC) Arthritis Thyroid disease Type 2 diabetes mellitus (HCC) PONV (postoperative nausea and vomiting) does OK with pre-treatment Cancer (HCC) Anxiety Cervical stenosis (uterine cervix) Ear problems HL (hearing loss) Family History Medical History Relation Name Comments Diabetes Brother Roshan Quevedo Hyperlipidemia Brother Roshan Quevedo Hypertension Brother Roshan Quevedo Cancer Father Michi Quevedo Hyperlipidemia Father Michi Quevedo Colon cancer Maternal Grandmother Huma Sinclair Diabetes Maternal Grandmother Huma Sinclair Hypertension Maternal Grandmother Huma Sinclair Cancer Mother Rosalina Quevedo Diabetes Mother Rosalina Quevedo Hypertension Mother Rosalina Quevedo Liver cancer Mother Rosalina Quevedo Lung cancer Mother Rosalina Quevedo Anesthesia problems Neg Hx Relation Name Status Comments Brother Roshan Quevedo Father Michi Quevedo Maternal Grandmother Huma Sinclair Mother Rosalina Quevedo Social History Tobacco Use Types Packs/Day Years Used Date Smoking Tobacco: Never Smokeless Tobacco: Never Tobacco Cessation:Counseling Given: No Alcohol Use Standard Drinks/Week Comments Yes 0 [...] on file 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 Gender Identity Female 10/19/2019 9:11 AM CDT Sexual Orientation Not on file Occupation Industry Job Start Date Job End Date Retired Not on file Not on file Not on file Obstetrics History Para Term AB IAB SAB Ectopic Multiple Livin g Live Births 0 0 0 0 0 0 0 0 0 0 0 Last Filed Vital Signs Vital Sign Reading Time Taken Comments Blood Pressure 105/52 12/01/2024 7:39 AM CDT Pulse 77 12/01/2024 7:39 AM CDT Temperature 36.7 C (98.1 F) 12/01/2024 7:39 AM CDT Respiratory Rate 19 12/01/2024 7:39 AM CDT Oxygen Saturation 95% 12/01/2024 7:39 AM CDT Inhaled Oxygen Concentration - - Weight 63.4 kg (139 lb 12.8 oz) 01/14/2025 4:17 PM CDT Height 162.6 cm (5' 4.02) 01/14/2025 4:17 PM CD T Body Mass Index 23.98 01/14/2025 4:17 PM CDT Plan of Treatment Health Maintenance Due Date Last Done Comments Hepatitis C Screening 1955 Hepatitis B Screening 01/24/1972 Foot Exam 08/30/2021 08/30/2020, 04/01/2019 Covid-19 Vaccine (2023-09 5 season) 2024 08/28/2023, 08/28/2023, 04/23/2022, Additional history exists Osteoporosis Screening-Bone Density Scan 06/23/2024 06/23/2021, 06/23/2021, 04/07/2019 Breast Cancer Screening-Mammogram 03/05/2025 03/05/2024, 10/22/2022, 08/15/2021, Additional history exists Hemoglobin A1C 04/15/2025 10/13/2024, 07/, 10/21/2023, Additional history exists Albumin Creatinine Ratio, Urine 10/13/2025 10/13/2024, 10/21/2023, 04/04/2023, Additional history exists Lipid Panel 10/13/2025 10/13/2024, 03/05, 04/04/2023, Additional history exists eGFR 10/13/2025 10/13/2024, 03/05, 03/03/2024, Additional history exists Dilated Eye Exam 11/05/2025 11/05/2024, 09/2023, 01/18/2023, Additional history exists Depression Screening 11/09/2025 11/09/2024, 09/16/2024, 05/19/2024, Additional history exists Well Visit 65+ 11/09/2025 11/09/2024, 05/05, 09/17/2023, Additional history exists Fall Risk Assessment 12/01/2025 12/01/2024, 11/09/2024, 09/16/2024, Additional history exists Colon Cancer Screening-Colonoscopy 08/31/2026 08/31/2021, 08/29/2021, 08/29/2021, Additional history exists DTaP/Tdap/Td Vaccine (2 - Td or Tdap) 04/01/2029 04/01/2019 Zoster Vaccine Completed 02/07/2019, 11/19/2018 Pneumococcal vaccine 65+ Completed 08/01/2020, 05/06 Colon Cancer Screening-CT Colonography Discontinued 08/31/2021, 08/29/2021, 08/29/2021, Additional history exists Colon Cancer Screening-DNA Stool Discontinued 08/31/2021, 08/29/2021, 08/29/2021, Additional history exists Colon Cancer Screening-FIT Discontinued 08/31, 08/29/2021, 08/29/2021, Additional history exists Colon Cancer Screening-Sigmoidoscopy Discontinued 08/31/2021, 08/29/2021, 08/29/2021, Additional history exists Influenza Vaccine Completed 05/19/2024, , 04/23/2022, Additional history exists Goals Goal Patient Goal Type Associated Problems Recent Progress Patient-Stated? 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 Minimize further functional decline 2. Maximize quality of life 3. Control pain Strategies: - Activity/exercise program recommendation - Conservative stepwise pain medicine strategy with multi-disciplinary approach - Recommend healthy lifestyle strategies and compensatory methods as needed Reduce the likelihood of falling Lifestyle Radha Cummings, RN Note: Below are four things you [...] on stairs Contact your local community or [facility] for information on exercise, fall prevention programs, or options for improving home safety. Medical Devices Implanted Type Area Activities Coordinator Device Identifier Shelf Expiration Date Model / Serial / Lot Davol Inc/C R Bard Phasix 8x6in Monofilament Scaffold Full Resorbable Rectangle Mesh [id number] - [id number] Implanted:Qty: 1 on 11/30/2024 by Josiah Reid MD at [facility] Mesh N/A: Abdomen [employer] Inc/C R Bard [id number] 06/01/2026 [id number] / / [id number] [employer] Campus Explorer Box Elder Microvascular 2mm Ring Pin Protective Cover Jaw Assembly Latex Free [id number] - [id number] Implanted:Qty: 1 on 03/19/2024 by Josiah Reid MD at [facility] Other - see comments Left: Breast [employer] Campus Explorer [id number] 05/23/2028 [id number] / / [id number] [employer] Machine Tender Tissue 15x13.8cm Breast 600-720cc Smooth Srfc Allox2-Fh15se - [id number] - [id number] Implanted:Qty: 1 on 07/22/2023 by Josiah Reid MD at [facility] Explanted:10/15 (Quantity not on file) Left: Breast Sientra Inc 12/20/2027 ALLOX2-FH 15SE / [id number] / Description:tissue expanders were removed sometime in Procedures Procedure Name Priority Date/Time Associated Diagnosis Comments POCT GLUCOSE DEVICE Routine 12/01/2024 12:06 PM CDT POCT GLUCOSE DEVICE Routine 12/01/2024 8 :31 AM CDT POCT GLUCOSE DEVICE Routine 11/30/2024 9 :08 PM CDT POCT GLUCOSE DEVICE Routine 11/30/2024 6 :12 PM CDT POCT GLUCOSE DEVICE Routine 11/30/2024 1 :49 PM CDT POCT GLUCOSE DEVICE Routine 11/30/2024 1 :00 PM CDT SURGICAL PATHOLOGY Routine 11/30/2024 11:20 AM CDT S/P breast reconstruction Deformity and disproportion of reconstructed breast Infection of breast tissue lei maker, subsequent encounter Malignant neoplasm of left female breast, unspecified estrogen receptor status, unspecified site of breast (HCC) 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, 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 POCT GLUCOSE DEVICE Routine 11/30/2024 10:54 AM CDT ANESTHESIA INTUBATION Routine 11/30/2024 10:38 AM CDT RECONSTRUCTION ABDOMINAL WALL 11/30/2024 10:22 AM CDT S/P breast reconstruction Deformity and disproportion of reconstructed breast Infection of breast tissue lei maker, subsequent encounter Malignant neoplasm of left female breast, unspecified estrogen receptor status, unspecified site of breast (HCC) 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, 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 REVISION SCAR - ABDOMINAL 11/30/2024 10:22 AM CDT S/P breast reconstruction Deformity and disproportion of reconstructed breast Infection of breast tissue lei maker, subsequent encounter Malignant neoplasm of left female breast, unspecified estrogen receptor status, unspecified site of breast (HCC) 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, 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 FAT GRAFTING - BREAST 11/30/2024 10:22 AM CDT S/P breast reconstruction Deformity and disproportion of reconstructed breast Infection of breast tissue lei maker, subsequent encounter Malignant neoplasm of left female breast, unspecified estrogen receptor status, unspecified site of breast (HCC) 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, 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 REVISION BREAST 11/30/2024 10:22 AM CDT S/P breast reconstruction Deformity and disproportion of reconstructed breast Infection of breast tissue lei maker, subsequent encounter Malignant neoplasm of left female breast, unspecified estrogen receptor status, unspecified site of breast (HCC) 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, 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 POCT GLUCOSE DEVICE Routine 11/30/2024 8 :18 AM CDT XR CHEST PA LATERAL 2 VIEWS Schedule Routine, Read Routine (OP Routine) 11/12/2024 1:56 PM CDT Acute cough DIABETES EYE EXAM Routine 11/05/2024 2:17 PM CDT COMPREHENSIVE METABOLIC PANEL Routine 10/13/2024 10:20 AM CDT Type 2 diabetes mellitus with hyperlipidemia (HCC) HEMOGLOBIN A1C Routine 10/13/2024 10:20 AM CDT Type 2 diabetes mellitus with hyperlipidemia (HCC) LIPID PANEL Routine 10/13/2024 10:20 AM CDT Type 2 diabetes mellitus with hyperlipidemia (HCC) ALBUMIN CREATININE RATIO, URINE Routine 10/13/2024 10:20 AM CDT Type 2 diabetes mellitus with hyperlipidemia (HCC) SCREENING MAMMOGRAM RIGHT W IRINEO UNILATERAL ONLY Schedule Routine, Read Routine (OP Routine) 03/05/2024 12:54 PM CDT Screening mammogram, encounter for COLONOSCOPY Routine 08/31/2021 HM DEXA SCAN Routine 06/23/2021 from Last 3 Months or Most Recently Relevant to Health Maintenance Results * POCT glucose (12/01/2024 12:06 PM CDT) Glucose, POC 165 70 - 199 mg/dL Blood 12/01/2024 12:0 6 PM CDT 12/01/2024 12:06 PM CDT us Josiah Reid MD LAB POCT ORDERABLES - DEVICE Final Result Performing Organization Address City/[facility]/ZIP Co de Phone Number [facility] [place] [place] [address] * POCT glucose (12/01/2024 8:31 AM CDT) Glucose, POC 137 70 - 199 mg/dL Blood 12/01/2024 8:31 AM CDT 12/01/2024 8:31 AM CDT us Josiah Reid MD LAB POCT ORDERABLES - DEVICE Final Result Performing Organization Address City/[facility] Co de Phone Number [facility] [place] [place] [address] * (ABNORMAL) POCT glucose (11/30/2024 9:08 PM CDT) Glucose, POC 229(H) 70 - 199 mg/dL Blood 11/30/2024 9:08 PM CDT 11/30/2024 9:08 PM CDT us Josiah Reid MD LAB POCT ORDERABLES - DEVICE Final Result Performing Organization Address City/[facility] Co de Phone Number [facility] [employer] [place] [address] * (ABNORMAL) POCT glucose (11/30/2024 6:12 PM CDT) Glucose, POC 202(H) 70 - 199 mg/dL Blood 11/30/2024 6:12 PM CDT 11/30/2024 6:12 PM CDT us Josiah Reid MD LAB POCT ORDERABLES - DEVICE Final Result Performing Organization Address [facility] de Phone Number [facility] [employer] [place] [address] * POCT glucose (11/30/2024 1:49 PM CDT) Glucose, POC 177 70 - 199 mg/dL Blood 11/30/2024 1:49 PM CDT 11/30/2024 1:49 PM CDT us Josiah Reid MD LAB POCT ORDERABLES - DEVICE Final Result Performing Organization Address [facility] de Phone Number [facility] [employer] [place] [address] * POCT glucose (11/30/2024 1:00 PM CDT) Glucose, POC 162 70 - 199 mg/dL Blood 11/30/2024 1:00 PM CDT 11/30/2024 1:00 PM CDT us Josiah Reid MD LAB POCT ORDERABLES - DEVICE Final Result Performing Organization Address [facility] de Phone Number [facility] [employer] [place] [address] * Surgical pathology (11/30/2024 11:20 AM CDT) Tissue (Breast, excisional biopsy/ partial mastectomy) 11/30/2024 11:20 AM CDT Narrative PATHOLOGY [facility] - 12/02/2024 8:20 AM CDT EPIC results best viewed via link to PDF [facility] [place] [address] Note to Patients: This report may contain a detailed description of human tissue sent by a health care provider to the laboratory for pathologic evaluation. The content of this report is essential for diagnosis and may provide important critical findings. This information may be unfamiliar to patients to review without a medical professional present. It is advised that the patient review this report in the presence of a health care provider who can answer questions and explain the details. SURGICAL PATHOLOGY REPORT FINAL Patient Name: ARABELLA MIJARES Gender: F : 1955 (Age: 69) Address: [address] [place], [place] [id number] Hospital #: [id number] Taken:11/30/2024 Received:11/30/2024 Reported: 12/02/2024 Patient Type: [facility] OP In Bed Service: Surgery Location: [place] [address] Physician(s): Sulaiman Wild MD Shawna R. Swinigan, PA-C Diagnosis: Skin, left breast, breast reconstruction - Benign skin with reparative changes - No evidence of atypia or malignancy [facility]/12/02/2024 06:23 By this signature, I attest that the above diagnosis is based upon my personal examination of the slides(and/or other material indicated in the diagnosis). Sanjeev Yun M.D. Report Electronically Reviewed and Signed Out By Sanjeev Yun M.D. 12/02/2024 08:20:13 Ros Olguin M.D. 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 Operative Procedure: revision breast left, fat grafting breast left, revision scar abdominal, repair of right abdominal wall bulge with synthetic mesh Specimen(s) Received: A: Left breast skin Gross Description: Received in formalin labeled with patient identifiers and left breast skin is an ellipse of lightly pigmented skin and underlying scant adipose tissue (7.7 x 2.5 x 0.5 cm). Eccentrically located on the skin surface is a faint bacon-pink scar (2.2 x 0.5 cm). Serial sections show no focal masses. Inspector Bicycle sections are submitted in cassette A1. Jar 1 bao2/11/30/2024 16:09 PA(s): JORDON aVrgas (ASCP)CM By this signature, I attest that the above diagnosis is based upon my personal examination of the slides(and/or other material). Addenda/Procedures The performance characteristics of some immunohistochemical stains, fluorescence in-situ hybridization tests and immunophenotyping by flow cytometry cited in this report (if any) were determined by the Surgical Pathology and Flow Cytometry Departments at [facility] as part of an ongoing quality control assistant program and in compliance with federally mandated regulations drawn from the Clinical Laboratory Improvement Act of 1988 (CLIA '88). Some of these tests rely on the use of analyte specific reagents and are subject to specific labeling requirements by the US Food and Drug Administration. Such diagnostic tests may only be performed in a facility that is certified by the Department of Health and Human Services as a high complexity laboratory under CLIA '88. The FDA has determined that such clearance or approval is not necessary. This test is used for clinical purposes. It should not be regarded as investigational or for research. Nevertheless, federal rules concerning the medical use of analyte specific reagents require that the following disclaimer be attached to the report: This test was developed and its performance characteristics determined by the Surgical Pathology and Flow Cytometry Departments of [facility]. It has not been cleared or approved by the U. S. Food and Drug Administration. IMAGES AND SCANNED DOCUMENTS, IF INCLUDED, ONLY VIEWABLE IN PDF VERSION OF REPORT us Josiah Reid MD LAB PATHOLOGY ORDERABLES Nathaly yang Result PATHOLOGY [facility] [address] Floor [place], [place] [phone] * POCT glucose (11/30/2024 10:54 AM CDT) Glucose, POC 135 70 - 199 mg/dL Blood 11/30/2024 10:5 4 AM CDT 11/30/2024 10:54 AM CDT us Josiah Reid MD LAB POCT ORDERABLES - DEVICE Final Result Performing Organization Address [facility] Co de Phone Number JOHN [facility] Department [place] [address] * Airway (11/30/2024 10:38 AM CDT) Narrative Sly Simons MD - 11/30/2024 10:38 AM CDT Sly Simons MD 11/30/2024 10:38 AM Airway Patient location: OR Urgency: elective Indications for airway management: anesthesia Difficult airway: no Staff: Supervising provider: Jean Lees MD Placed by: Resident: Sly Simons MD Airway prep: Preoxygenated: yes Patient position: sniffing Mask difficulty assessment: 0 - not attempted Spontaneous ventilation during airway: absent Sedation level during airway: GA Final airway details: Final airway type: endotracheal airway Tube type: ETT ETT size: 7.0 mm Cuffed: yes Technique used for successful ETT placement: video laryngoscopy Devices/Methods used in placement: intubating stylet Insertion site: oral Blade type: Michelle Video laryngoscopy: AirTraq. Blade size: 3 Cormack-Lehane (video): grade I - full view of glottis Initial cuff pressure: 28 cm H2O Cuff inflated with: air ETT to lips: 22 cm Placement verified by: auscultation and CO2 detection Airway secured with: silk tape Number of attempts: 1 us Jean Lees MD ANESTHESIA ORDERABLES Final Res ult * POCT glucose (11/30/2024 8:18 AM CDT) Glucose, POC 163 70 - 199 mg/dL Blood 11/30/2024 8:18 AM CDT 11/30/2024 8:18 AM CDT us Josiah Reid MD LAB POCT ORDERABLES - DEVICE Final Result Performing Organization Address City/[facility]/ZIP Co de Phone Number JOHN MARTINS [facility] [place] [address] * XR Chest PA Lateral 2 Views (11/12/2024 1:56 PM CDT) Anatomical Region Laterality Modality Body, Chest N/A Radiographic Neris ging Renee RUVALCABA IMG XR PROCEDURES Final Re sult * DIABETES EYE EXAM (11/05/2024 2:17 PM CDT) SCRIBED DIABETIC DILATED EYE EXAM Normal Impressions Jenny Ba AMITA - 11/05/2024 2:17 PM CDT OD: 20/30 Mild Cataracts OU OS: 20/30 Historical Provider MD HEALTH MAINTENANCE Final Result * (ABNORMAL) Albumin Creatinine Ratio, Urine (10/13/2024 10:20 AM CDT) Creatinine, ur 157 20 - 275 mg/dL [facility] Microalbumin, ur 22.3 See Note: mg/dL [facility] Comment: Reference Range: Reference Range Not established Microalbumin/creat ratio 142(H) <30 mg/g creat [facility] Comment: The ADA defines abnormalities in albumin excretion as follows: Albuminuria Category Result (mg/g creatinine) Normal to Mildly increased <30 Moderately increased 30-299 Severely increased > OR = 300 The ADA recommends that at least two of three specimens collected within a 3-6 month period be abnormal before considering a patient to be within a diagnostic category. Urine 10/13/2024 10:2 0 AM CDT 10/13/2024 10:21 AM CDT Narrative [facility] - 10/14/2024 3:50 AM CDT FASTING:YES FASTING: YES Renee RUVALCABA LAB URINE ORDERABLES Final Result [facility] [address] [place] [phone] * (ABNORMAL) Hemoglobin A1c (10/13/2024 10:20 AM CDT) Hgb A1C 7.1(H) <5.7 % of total Hgb [email or web address] Comment: For someone without known diabetes, a hemoglobin A1c value of 6.5% or greater indicates that they may have diabetes and this should be confirmed with a follow-up test. For someone with known diabetes, a value <7% indicates that their diabetes is well controlled and a value greater than or equal to 7% indicates suboptimal control. A1c targets should be individualized based on duration of diabetes, age, comorbid conditions, and other considerations. Currently, no consensus exists regarding use of hemoglobin A1c for diagnosis of diabetes for children. Blood 10/13/2024 10:2 0 AM CDT 10/13/2024 10:21 AM CDT Narrative [facility] - 10/14/2024 3:50 AM CDT FASTING:YES FASTING: YES Renee RUVALCABA LAB BLOOD ORDERABLES Final Result [facility] [address] [place] [address] * Lipid panel (10/13/2024 10:20 AM CDT) [facility] Cholesterol 171 <200 mg/dL [email or web address] HDL 82 > OR = 50 mg/dL [facility] Triglycerides 132 <150 mg/dL [facility] al[facility] LDL 67 mg/dL (calc) [facility] Comment: Reference range: <100 Desirable range <100 mg/dL for primary prevention; <70 mg/dL for patients with CHD or diabetic patients with > or = 2 CHD risk factors. LDL-C is now calculated using the Yobany calculation, which is a validated novel method providing better accuracy than the Friedewald equation in the estimation of LDL-C. Jerald GARCIA et al. OSCAR. 2013;310(19): 8555-7466 (http://education.Months Of Me/faq/FLD408) Chol/HDL ratio 2.1 <5.0 (calc) [email or web address] Non-HDL, (LDL+VLDL) 89 <130 mg/dL (calc) [facility] Comment: For patients with diabetes plus 1 major ASCVD risk factor, treating to a non-HDL-C goal of <100 mg/dL (LDL-C of <70 mg/dL) is considered a therapeutic option. Blood 10/13/2024 10:2 0 AM CDT 10/13/2024 10:21 AM CDT Narrative [facility] - 10/14/2024 3:50 AM CDT FASTING:YES FASTING: YES Renee RUVALCABA LAB BLOOD ORDERABLES Final Result [facility] [address] [place] [address] * (ABNORMAL) Comprehensive metabolic panel (10/13/2024 10:20 AM CDT) Glucose 159(H) 65 - 99 mg/dL [facility] [email or web address] [facility] Comment: Fasting reference interval For someone without known diabetes, a glucose value >125 mg/dL indicates that they may have diabetes and this should be confirmed with a follow-up test. BUN 15 7 - 25 mg/dL [email or web address] Creatinine 0.53(L) 0.60 - 1.00 mg/dL [email or web address] eGFR 99 > OR = 60 mL/min/1.7 3m2 [email or web address] BUN/creat ratio 28(H) 6 - 22 (calc) [email or web address] Sodium 138 135 - 146 mmol/L [facility] Potassium, pl 4.0 3.5 - 5.3 mmol/L [email or web address] Chloride 104 98 - 110 mmol/L [facility] Willie CO2 26 20 - 32 mmol/L [facility] Calcium 9.2 8.6 - 10.4 mg/dL [email or web address] Willie Protein, sr 6.2 6.1 - 8.1 g/dL [email or web address] Willie Albumin 4.3 3.6 - 5.1 g/dL [email or web address] Willie GLOBULIN 1.9 1.9 - 3.7 g/dL (calc) [email or web address] Willie Alb/glob ratio 2.3 1.0 - 2.5 (calc) [facility] Bilirubin, total 0.4 0.2 - 1.2 mg/dL [facility] Alk phos 76 37 - 153 U/L [facility] AST 25 10 - 35 U/L [facility] ALT (SGPT) 102(H) 6 - 29 U/L [facility] Blood 10/13/2024 10:2 0 AM CDT 10/13/2024 10:21 AM CDT Narrative [facility] - 10/14/2024 3:50 AM CDT FASTING:YES FASTING: YES us Renee RUVALCABA LAB BLOOD ORDERABLES Final Result [facility] [address] [place] [address] * Screening Mammogram Right W Irineo Unilateral Only (03/05/2024 12:54 PM CDT) Anatomical Region Laterality Modality Breast Right Mammography Impressions 03/09/2024 11:32 AM CDT BI-RADS ATLAS category (right): 2 - Benign There is no mammographic evidence of malignancy. A 1 year screening mammogram is recommended. The patient has been or will be contacted. We recommend annual screening mammography for women at average risk of breast cancer beginning at age 40, based on guidelines of the [employer] (ACR Practice Parameter for the Performance of Screening and Diagnostic Mammography) and [employer]. For women with and elevated risk of breast cancer, please refer to the ACR Practice Parameter for specific screening recommendations. The patient will be entered into a reminder system with a target due date of 1 year for her next screening exam. Narrative 03/09/2024 11:32 AM CDT Screening Mammogram Right W Irineo Unilateral Only: 03/05/24 The study was acquired using full field digital technology and interpreted from soft copy. 2D digital mammographic views, as well as 3D digital tomosynthesis were performed in the CC and MLO projections. CLINICAL: Screening mammogram, encounter for. No relevant medical history has been documented for this patient. No known family history of breast cancer. COMPARISONS: 05/14/2023 MRI Breast Bilateral W WO Contrast 10/22/2022 Breast Imaging Screening Outside Reference 08/15/2021 Breast Imaging Screening Outside Reference 04/25/2020 Breast Imaging Screening Outside Reference BREAST TISSUE: The right breast has scattered areas of fibroglandular density. FINDINGS: There are unchanged benign microcalcifications in the right breast. No suspicious findings are identified in the right breast on mammogram. us Self Screening Mammogram IMG MAMMO PROCEDURES Fi nal Result * (ABNORMAL) Colonoscopy (08/31/2021) Anatomical Region Laterality Modality Other us Historical Provider ENDOSCOPY PROCEDURES Edit ed Result - Final * HM DEXA SCAN (06/23/2021) Juliane Fishman MD HEALTH MAINTENANCE Final R esult from Last 3 Months or Most Recently Relevant to Health Maintenance Additional Health Concerns Infection Onset Date Last Indicated MDR gram neg/ESBL 10/17/2023 10/17/[address] [facility] Advance Directives For more information, please contact: [phone] Documents on File Type Date Recorded Patient Inspector Bicycle Expl anation ADVANCE DIRECTIVE 03/25/2024 12:15 AM POLS T * Full Code (Latest Code Status on File) Date Activated Date Inactivated Comments 11/30/2024 4:07 PM 12/01/2024 6:51 PM * Full Code Date Activated Date Inactivated Comments 03/19/2024 5:03 PM 03/22/2024 3:42 PM Care Teams Gear Machine Operator Relationship Specialty Start Date End Date Renee Melo PA [address] [facility] [address] [place] [address] PCP - General Internal Medicine 02/16/19 JoseJuliane MD [id number] DIV IM MEDICAL ONCOLOGY, [facility] [address] [place] [address] Surgeon Medical Oncology 09/03/24
--- OUTSIDE RECORDS SUMMARY | 2025-01-19 14:57 | XMS_ITS ---
Author Organization [facility] [address] [place] [address] Care Team Providers Care Precision Grinder External Name Role Phone Renee Melo Primary Care Provider [phone] [place], Juliane Rice MD Unavailable [phone] Active Problems Problem Noted Date Diagnosed Date [...] 08/09/2023 Assessment & Plan (06/09/2024 10:45 AM GIZZARD SKIN REMOVER): I think her hearing loss is probably due to her familial history as well as some noise exposure and aging. I think she would benefit from hearing aids. We talked quite a bit about that. I recommended that she also talk with our instrument lens grinder. She possibly can get some coverage through her insurance. Tinnitus 05/22/2024 Assessment & Plan (06/09/2024 10:46 AM GIZZARD SKIN REMOVER): I talked with the patient about tinnitus. Typically it is due to hearing loss but there are other potential reasons for it. It can occur due to cervical strain or TMJ disorder. Also potentially due to tumors which are usually benign. Unfortunately there is no widely accepted or successful treatment for it. There are a lot of lgsi-ypy-xmpyjaf remedies which generally do not help and [...] maintain. Assessment & Plan (09/16/2024 10:34 AM GIZZARD SKIN REMOVER): Discussed the patient's BMI. The BMI is [...] schedule. Assessment & Plan (09/27/2024 4:16 PM GIZZARD SKIN REMOVER): Patient is having persistent neck pain but [...] MRI for further evaluation Infected breast tissue egg and spice mixer 10/11/2023 Cervicalgia 10/03/2023 Assessment & Plan (05/22/2024 [...] relief Assessment & Plan (10/03/2023 9:39 PM GIZZARD SKIN REMOVER): This is a significant, separately identifiable problem [...] 04/11/2023 Assessment & Plan (10/03/2023 9:37 PM GIZZARD SKIN REMOVER): Continue per plastics at [facility] and Oncology. She is continuing to heal after her left mastectomy. 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 She is being referred to specialist at [facility] as she is had persistent positive margins [...] appropriate Assessment & Plan (07/08/2022 12:22 AM GIZZARD SKIN REMOVER): Encouraged NSAIDS (if able to safely tolerate) or Tylenol. Topical preparations like Lidocaine patches, Biofreeze, ICYHOT etc as needed. Heat, stretching Avoid long periods of sitting/laying. Check xrays Encouraged PT and order provided Followup if has any problems controlling bowels or bladder or if sxs worsen. Age-related nuclear cataract of both eyes 2021 Assessment & Plan (06/22/2022 11:28 AM GIZZARD SKIN REMOVER): Mild, observe. Symptomatic at night time but does not interfere with activities. Fatigue 05/06/2022 Assessment & Plan (09/27/2024 4:15 PM GIZZARD SKIN REMOVER): Probably multifactorial. Check labs and followup to re-evaluate Assessment & Plan (10/03/2023 9:38 PM GIZZARD SKIN REMOVER): Probably multifactorial. Check labs and followup to [...] 03/16/2022 Assessment & Plan (06/22/2022 11:34 AM GIZZARD SKIN REMOVER): VMT with lamellar hole OS Doing well [...] 11/09/2021 Assessment & Plan (10/03/2023 9:37 PM GIZZARD SKIN REMOVER): Continue per Ophthalmology. Patient states her symptoms [...] Supplement Assessment & Plan (10/03/2023 9:37 PM GIZZARD SKIN REMOVER): Supplement Assessment & Plan (04/11/2023 10:15 PM CDT): Supplement Assessment & Plan (03/02/2021 1:10 PM CDT): supplement Assessment & Plan (08/30/2020 11:00 PM GIZZARD SKIN REMOVER): supplement Assessment & Plan (02/27/2020 8:36 PM CDT): supplement Assessment & Plan (10/26/2019 4:12 PM CDT): supplement Assessment & Plan (07/19/2019 7:33 PM GIZZARD SKIN REMOVER): supplement Sciatica of left side 07/16/2019 Assessment & Plan (05/22/2024 1:24 PM CDT): Patient has intermittent sciatica. She is on gabapentin which will help her neck as well as sciatica Assessment & Plan (02/27/2020 8:35 PM CDT): Improved. Will monitor Assessment & Plan (07/19/2019 7:33 PM GIZZARD SKIN REMOVER): Continue NSAID, even if otc. Offered PT, but she isn't interested. Call if sxs worsen or don't improve. Moderate episode of recurrent major depressive d isorder 03/08/2019 Assessment & Plan (11/22/2024 8:00 PM CDT): Continue Cymbalta 60 mg b.i.d. symptoms are stable Assessment & Plan (05/22/2024 1:20 PM CDT): Stable with Cymbalta Assessment & Plan (10/03/2023 9:37 PM GIZZARD SKIN REMOVER): Patient's depression symptoms have been stable. She [...] medication Assessment & Plan (08/30/2020 11:01 PM GIZZARD SKIN REMOVER): Still stable without medication Assessment & Plan (02/27/2020 8:38 PM CDT): Stable without medication. Will continue to monitor. Assessment & Plan (10/26/2019 4:11 PM CDT): weened off the antidepressants. Feeling good. Continue to monitor. Assessment & Plan (07/19/2019 7:35 PM GIZZARD SKIN REMOVER): Stable with Lexapro Assessment & Plan (04/01/2019 [...] of continued A1c control to minimize the long-term effects of diabetes. Bring accuchecks to office when instructed to do so. Check A1c about every 3-6 months. Take medication as prescribed. Get annual eye exam. Encouraged NASIR/Statin if able to tolerate. Encouraged weight control and encouraged diabetic diet and exercise. A1c in October of 2024 was 7.1 See cold feet Patient would like to see a tobacco prevention health educator to assist in diet choices Continue Ozempic 0.5 mg weekly Assessment & Plan (09/27/2024 4:14 PM GIZZARD SKIN REMOVER): Stressed importance of continued A1c control to minimize the termite exterminator helper effects of diabetes. Bring accuchecks to office [...] mg Assessment & Plan (10/03/2023 9:38 PM GIZZARD SKIN REMOVER): Encouraged patient to follow low fat/low chol [...] continued A1c control to minimize the termite exterminator helper effects of diabetes. Bring accuchecks to office [...] simvastatin Assessment & Plan (08/26/2021 5:03 PM GIZZARD SKIN REMOVER): Encouraged patient to follow fat/low chol diet [...] months. Assessment & Plan (08/30/2020 11:01 PM GIZZARD SKIN REMOVER): Encouraged patient to follow fat/low chol diet [...] continued A1c control to minimize the termite exterminator helper effects of diabetes. Bring accuchecks to office when instructed to do so. Check A1c about every 3-6 months. Take medication as prescribed. Get annual eye exam. Encouraged NASIR/Statin if able to tolerate. Encouraged weight control and encouraged diabetic diet and exercise. Continue jardiance. Metformin 1gm bid --- may decrease to one daily Assessment & Plan (07/19/2019 7:35 PM GIZZARD SKIN REMOVER): Encouraged patient to continue low fat/low chol diet. Continue exercise. Increase good fats in the diet. Monitor labs as needed. Continue statin. Change from crestor to simvastatin due to cost/insurance change. Assessment & Plan (04/01/2019 9:06 PM CDT): Stressed importance of continued A1c control to minimize the long-term effects of diabetes. Bring accuchecks to office [...] continued A1c control to minimize the termite exterminator helper effects of diabetes. Bring accuchecks to office when instructed to do so. Check A1c about every 3-6 months. Take medication as prescribed. Get annual eye exam. Encouraged NASIR/Statin if able to tolerate. Encouraged weight control and encouraged diabetic diet and exercise. A1c is well controlled at 7.1 Assessment & Plan (05/22/2024 1:19 PM CDT): Stressed importance of continued A1c control to minimize the long-term effects of diabetes. Bring accuchecks to office when instructed to do so. Check A1c about every 3-6 months. Take medication as prescribed. Get annual eye exam. Encouraged NASIR/Statin if able to tolerate. Encouraged weight control and encouraged diabetic diet and exercise. Tightly controlled with the Ozempic 0.5 mg per week Assessment & Plan (10/03/2023 9:37 PM GIZZARD SKIN REMOVER): Stressed importance of continued A1c control to minimize the termite exterminator helper effects of diabetes. Bring accuchecks to office [...] continued A1c control to minimize the termite exterminator helper effects of diabetes. Bring accuchecks to office when instructed to do so. Check A1c about every 3-6 months. Take medication as prescribed. Get annual eye exam. Encouraged NASIR/Statin if able to tolerate. Encouraged weight control and encouraged diabetic diet and exercise. Continue Trulicity 0.75mg/week Assessment & Plan (04/11/2023 10:14 PM CDT): Stressed importance of continued A1c control to minimize the long-term effects of diabetes. Bring accuchecks to office [...] of continued A1c control to minimize the long-term effects of diabetes. Bring accuchecks to office when instructed to do so. Check A1c about every 3-6 months. Take medication as prescribed. Get annual eye exam. Encouraged NAISR/Statin if able to tolerate. Encouraged weight control [...] of continued A1c control to minimize the long-term effects of diabetes. Bring accuchecks to office [...] of continued A1c control to minimize the long-term effects of diabetes. Bring accuchecks to office when instructed to do so. Check A1c about every 3-6 months. Take medication as prescribed. Get annual eye exam. Encouraged NASIR/Statin if able to tolerate. Encouraged weight control and encouraged diabetic diet and exercise. Well controlled with the Jardiance 25 mg. Continue to monitor closely Assessment & Plan (08/26/2021 5:03 PM GIZZARD SKIN REMOVER): Stressed importance of continued A1c control to minimize the termite exterminator helper effects of diabetes. Bring accuchecks to office when instructed to do so. Check A1c about every 3-6 months. Take medication as prescribed. Get annual eye exam. Encouraged NASIR/Statin if able to tolerate. Encouraged weight control and encouraged diabetic diet and exercise. Continue Jardiance 25 Assessment & Plan (03/02/2021 1:09 PM CDT): Stressed importance of continued A1c control to minimize the termite exterminator helper effects of diabetes. Bring accuchecks to office when instructed to do so. Check A1c about every 3-6 months. Take medication as prescribed. Get annual eye exam. Encouraged NASIR/Statin if able to tolerate. Encouraged weight control and encouraged diabetic diet and exercise. Tightly controlled with Jardiance. If A1c is still great, will completely stop the metformin. Assessment & Plan (08/30/2020 11:03 PM GIZZARD SKIN REMOVER): This is a significant, separately identifiable problem that was evaluated and managed on the same day as the wellness exam Stressed importance of continued A1c control to minimize the termite exterminator helper effects of diabetes. Bring accuchecks to office [...] continued A1c control to minimize the termite exterminator helper effects of diabetes. Bring accuchecks to office [...] hyperlipidemia. Assessment & Plan (07/19/2019 7:35 PM GIZZARD SKIN REMOVER): Stressed importance of continued A1c control to minimize the termite exterminator helper effects of diabetes. Bring accuchecks to office [...] continued A1c control to minimize the termite exterminator helper effects of diabetes. Bring accuchecks to office [...] labs. Assessment & Plan (09/27/2024 4:15 PM GIZZARD SKIN REMOVER): Continue levothyroxine 88 mcg. Monitor labs. Assessment & Plan (05/22/2024 1:20 PM CDT): Continue levothyroxine 88 mcg. Monitor labs. Assessment & Plan (10/03/2023 9:38 PM GIZZARD SKIN REMOVER): Continue levothyroxine. Monitor labs. Assessment & Plan (04/23/2023 7:56 PM CDT): Continue levothyroxine. Monitor labs. Assessment & Plan (04/11/2023 10:14 PM CDT): Continue levothyroxine. Monitor labs. Assessment & Plan (10/24/2022 10:40 PM CDT): Continue levothyroxine. Monitor labs. Assessment & Plan (12/02/2021 8:32 PM CDT): Continue levothyroxine. Monitor labs. Assessment & Plan (08/26/2021 5:03 PM GIZZARD SKIN REMOVER): Continue levothyroxine Assessment & Plan (03/02/2021 1:10 PM CDT): Continue levothyroxine. Monitor labs. Assessment & Plan (08/30/2020 11:01 PM GIZZARD SKIN REMOVER): Continue levothyroxine Assessment & Plan (02/27/2020 8:38 PM CDT): Continue replacement. Check labs Assessment & Plan (10/26/2019 3:12 PM CDT): TSh is suppressed. Decreased to 88mcg daily Assessment & Plan (07/19/2019 7:33 PM GIZZARD SKIN REMOVER): Continue levothyroxine. Check labs Assessment & Plan [...] 11/07/2016 Overview (05/24/2023): Glycosuria;Recorded Elsewhere: No Location: [facility] Source: EHR Chronic: N Practice ID: [id number] Billable Time: 11:30:00 AM Menopausal symptom 05/28/2014 Overview (08/06/2023): Menopausal symptoms;Recorded Elsewhere: No Location: [facility] Source: EHR Chronic: N Practice ID: [id number] Billable Time: 01:00:00 PM Assessment & Plan (02/27/2020 8:41 PM CDT): Check DXA Current Treatment and Therapy Plans No current plan information found. Past Treatment and Therapy Plans No past plan information found. Lifetime Dose Tracking * Chemical Lifetime Dose Automatic Entry Manual Entr y Fluoro Time 0.585 minutes 0.585 minutes 0 minutes Air kerma at the reference point (Ka,r) 3.89 mGy 3 .89 mGy 0 mGy DLP 483 mGycm 483 mGycm 0 mGycm Resolved Problems Problem Noted Date Diagnosed Date Resolved Date Acute cough 06/24/2024 09/27/2024 Acute cough 06/24/2024 09/27/2024 Assessment & Plan (06/24/2024 12:20 PM GIZZARD SKIN REMOVER): Due to length of time will send [...] 10/25/19 Assessment & Plan (07/08/2022 12:22 AM GIZZARD SKIN REMOVER): Weight/BMI is in healthy range. Continue healthy [...] within the chart Annual physical exam 08/26/2021 024 Assessment & Plan (10/03/2023 9:38 PM GIZZARD SKIN REMOVER): Encouraged healthy lifestyle, good nutrition and exercise. Encouraged Calcium and Vitamin D and weight bearing exercise for bone health. Reviewed immunizations Reviewed age appropirate screenings. Assessment & Plan (10/24/2022 10:41 PM CDT): Encouraged healthy lifestyle, good nutrition and exercise. Encouraged Calcium and Vitamin D and weight bearing exercise for bone health. Reviewed immunizations Reviewed age appropirate screenings. Assessment & Plan (08/26/2021 5:04 PM GIZZARD SKIN REMOVER): Encouraged healthy lifestyle, good nutrition and exercise. [...] will need to return back to the preparation room worker for possible re-biopsy to determine why she is not responding to the clobetasol. Assessment & Plan (08/26/2021 7:01 PM GIZZARD SKIN REMOVER): This is a significant, separately identifiable problem that was evaluated and managed on the same day as the wellness exam Patient has had vulvar itching. Saw the preparation room worker in a vulvar biopsy was done in June of 2021. The by see showed possible early lichen sclerosis not being able to be ruled out but there was no carcinoma present or atypical lesions. She has not been on clobetasol. The preparation room worker note alludes to her being on a but patient has not so I am going to start her on clobetasol to the area twice a day to clean skin. Will monitor closely for follow-up in a few months and if not noting improvement may refer to new preparation room worker and/or consider re-biopsy. BMI 26.0-26.9,adult 03/02/2021 11/14/19 Assessment & Plan (08/26/2021 5:04 PM GIZZARD SKIN REMOVER): Weight/BMI is in healthy range. Continue healthy [...] 021 Assessment & Plan (08/30/2020 2:25 PM GIZZARD SKIN REMOVER): Weight/BMI is in healthy range. Continue healthy lifestyle to maintain. Annual physical exam 08/30/2020 021 Assessment & Plan (08/30/2020 11:01 PM GIZZARD SKIN REMOVER): Encouraged healthy lifestyle, good nutrition and exercise. Encouraged Calcium and Vitamin D and weight bearing exercise for bone health. Reviewed immunizations Reviewed age appropirate screenings. Chronic left shoulder pain 08/30/2020 1 Assessment & Plan (08/30/2020 11:02 PM GIZZARD SKIN REMOVER): This is a significant, separately identifiable problem that was evaluated and managed on the same day as the wellness exam Has been seeing Ortho. Had a few injections, but not getting consistent relief. Recommend PT. Order provided. Followup if sxs dont improve. Colon cancer screening 08/30/202010/24 Assessment & Plan (08/26/2021 7:00 PM GIZZARD SKIN REMOVER): Has colonoscopy scheduled 08/[address] Olson Assessment & Plan (03/02/2021 1:10 PM CDT): Refer to Dr. Eason Assessment & Plan (08/30/2020 11:03 PM GIZZARD SKIN REMOVER): Screening due with Dr. Olson. Will send [...] provided Assessment & Plan (08/26/2021 5:03 PM GIZZARD SKIN REMOVER): Mammogram order provided Assessment & Plan (03/02/2021 1:10 PM CDT): Mammogram order provided Assessment & Plan (08/30/2020 11:01 PM GIZZARD SKIN REMOVER): Mammogram order provided Assessment & Plan (02/27/2020 [...] 10/26/2019 Assessment & Plan (07/19/2019 7:36 PM GIZZARD SKIN REMOVER): Probably multifactorial. Check labs and followup to [...] 10/26/2019 Assessment & Plan (07/19/2019 7:35 PM GIZZARD SKIN REMOVER): Continue Lexapro Assessment & Plan (04/01/2019 9:09 [...] maintain. Assessment & Plan (10/03/2023 9:38 PM GIZZARD SKIN REMOVER): Weight/BMI is in healthy range. Continue healthy [...] index (BMI) 30.0-30.9, adult;Recorded Elsewhere: No Location: [facility] Source: EHR Chronic: N Practice ID: [id number] Billable Time: 03:00:00 PM Assessment & Plan (10/24/2022 1:19 PM CDT): Weight/BMI is in healthy range. Continue healthy lifestyle to maintain. Obesity 05/28/2014 10/03/2023 Overview (07/30/2023): Obesity, unspecified;Practice ID: [id number] Assessment & Plan (11/13/2021 9:44 AM CDT): Weight/BMI is in healthy range. Continue healthy lifestyle to maintain.
--- OUTSIDE RECORDS SUMMARY | 2025-01-19 14:57 | XMS_ITS | Encounter Summary ---
Author Organization [facility] Healthcare Address [address] [place] [address] Care Team Providers Care Arch Support Technician Name Role Phone Renee Melo Primary Care Provider [phone] WinchesterJuliane MD Unavailable [phone] Reason for Visit * Reason Onset Date Comments Medical Question/Miscellaneous 01/15/2025 Encounter Details Date Type Department Care Team (Late st Contact Info) Description 01/15/2025 Telephone [facility] Family Medicine [address] [place] [address] Renee Melo PA [address] [facility] [address] [place] [address] Medical Question/Miscellaneous Social History Tobacco Use Types Packs/Day Years [...] on file Legal Sex Female 8:39 PM [employer] Gender Identity Female 10/19/2019 9:11 AM CDT Sexual Orientation Not on file Occupation Industry Job Start Date Job End Date Retired Not on file Not on file Not on file documented as of this encounter Miscellaneous Notes * Telephone Encounter - Caitlin Hdez LPN - 01/15/2025 11:42 AM CDT Called and spoke to [facility] and provided diagnosis code for US. * Telephone Encounter - Preston Schwartz - 01/15/2025 11:08 AM CDT Medical Question/Miscellaneous Caller???s Concern: Sp with [facility] calling to get the diagnosis codes for Ultrasound of Arterial ankle, relayed urgency. Please reach out to Sp ( direct line) to discuss. Does message need to be routed? Yes-Action Needed documented in this encounter Plan of Treatment Not on file documented as of this encounter Goals Goal Patient Goal Type Associated Problems Recent Progress Patient-Stated? Author CCM Chronic Pain Care Plan Chronic Care Management No change(10/01 12:46 PM [employer]) No Radha Inman, RN Note: Problem: Chronic [...] documented as of this encounter Care Teams Arch Support Technician Relationship Specialty Start Date End Date Renee Melo PA [address] [place] [address] PCP - General Internal Medicine 02/16/19 Juliane Garcia MD [address] [facility] [address] DIV IM MEDICAL ONCOLOGY, [facility] [address] [place] [address] Surgeon Medical Oncology 09/03/24 documented as of this encounter
--- OUTSIDE RECORDS SUMMARY | 2025-01-19 14:57 | XMS_ITS | Referral Summary ---
Author Organization [address] Address [address] [place] [phone] Care Team Providers Care Car Deliverer Name Role Phone Renee Melo Primary Care Provider [phone] GrindstoneJuliane villalba MD Unavailable Encounters Date Type Department Care Team Description 01/15/[address] [place] [phone] Renee Melo PA Medical Question/Miscellaneou s 01/14/2025 1:00 PM CDT Clinical Support [facility] Nutrition Counseling [address] [place] [phone] Type 2 diabetes mellitus without complication, without long-term current use of insulin (HCC) (Primary Dx) 01/01/2025 9:30 AM CDT Office Visit [address] 6th [place] [phone] Josiah Reid MD Deformity of reconstructed breast (Primary Dx); Malignant neoplasm of left female breast, unspecified estrogen receptor status, unspecified site of breast (HCC) 12/16/2024 11:00 AM CDT Office Visit [address] [place] [place] [phone] Malignant neoplasm of left female breast, unspecified estrogen receptor status, unspecified site of breast (HCC) (Primary Dx) 12/04/[address] [place] [phone] Renee Melo PA Followup from recent sugery 11/30/2024 7:35 AM CDT - 12/01/2024 2:51 PM CDT Hospital Encounter [facility] [address] [place] [address] Josiah Reid MD S/P breast reconstruction; Deformity and disproportion of reconstructed breast; Infection of breast tissue cloth grader supervisor, subsequent encounter; Malignant neoplasm of left female breast, unspecified estrogen receptor status, unspecified site of breast (HCC); Acquired absence of left breast; Ductal carcinoma in situ (DCIS) of breast, unspecified laterality; Ductal carcinoma in situ (DCIS) of left breast Discharge Disposition: Discharge to home or self care 11/30/[address] [place] [phone] Renee Melo PA 11/30/2024 10:10 AM CDT - 11/30/2024 1:15 PM CDT Surgery [facility] Operating [facility] [address] [place] [phone] Josiah Reid MD REVISION BREAST LEFT 11/30/2024 10:22 AM CDT Anesthesia Event [facility] Operating Room [facility] [address] [place] [phone] Jean Lees MD McGowan, Jessica Lynn, NP 11/27/2024 Telephone [facility] [address] [place] [address] for [facility] 6th [place] [address] Rosalina Lott Surgery Confirmation 11/24/2024 Results Follow-Up [address] [place] [phone] Renee Melo PA XR Chest PA Lateral 2 Views 11/12/[address] [place] [phone] Renee Melo PA Medical Question/Miscellaneou s 11/12/2024 Orders Only [address] [place] [address] Renee Melo PA Acute cough (Primary Dx) 11/09/2024 11:00 AM CDT Office Visit [address] [place] [address] Renee Melo PA Annual physical exam (Primary [...] (HCC); BMI 24.0-24.9, adult 10/29/2024 Orders Only [facility] [address] [place] [phone] Saurabh Belcher Jr., MD Abnormal mammogram (Primary Dx) from Last 3 Months Allergies No known active allergies Medications semaglutide [...] total) by mouth daily 180 capsule 1 025 Active levothyroxine (SYNTHROID) 88 mcg tabletIndications :Acquired [...] 08/09/2023 Assessment & Plan (06/09/2024 10:45 AM LASER PRINTING OPERATOR): I think her hearing loss is probably due to her familial history as well as some noise exposure and aging. I think she would benefit from hearing aids. We talked quite a bit about that. I recommended that she also talk with our windshield technician. She possibly can get some coverage through her insurance. Tinnitus 05/22/2024 Assessment & Plan (06/09/2024 10:46 AM LASER PRINTING OPERATOR): I talked with the patient about tinnitus. Typically it is due to hearing loss but there are other potential reasons for it. It can occur due to cervical strain or TMJ disorder. Also potentially due to tumors which are usually benign. Unfortunately there is no widely accepted or successful treatment for it. There are a lot of [id number] remedies which generally do not help and [...] maintain. Assessment & Plan (09/16/2024 10:34 AM LASER PRINTING OPERATOR): Discussed the patient's BMI. The BMI is [...] schedule. Assessment & Plan (09/27/2024 4:16 PM LASER PRINTING OPERATOR): Patient is having persistent neck pain but [...] MRI for further evaluation Infected breast tissue cloth grader supervisor 10/11/2023 Cervicalgia 10/03/2023 Assessment & Plan (05/22/2024 [...] relief Assessment & Plan (10/03/2023 9:39 PM LASER PRINTING OPERATOR): This is a significant, separately identifiable problem [...] 04/11/2023 Assessment & Plan (10/03/2023 9:37 PM LASER PRINTING OPERATOR): Continue per plastics at [facility] Oncology. She is continuing to heal after her left mastectomy. Assessment & Plan (04/23/2023 7:55 PM CDT): Continue to work with [facility] surgical oncologist as well as plastics for further evaluation and treatment of her DCIS Assessment & Plan (04/11/2023 10:14 PM CDT): Continue per surgeon. She is being referred to specialist at [facility] as she is had persistent positive margins [...] appropriate Assessment & Plan (07/08/2022 12:22 AM LASER PRINTING OPERATOR): Encouraged NSAIDS (if able to safely tolerate) or Tylenol. Topical preparations like Lidocaine patches, Biofreeze, ICYHOT etc as needed. Heat, stretching Avoid long periods of sitting/laying. Check xrays Encouraged PT and order provided Followup if has any problems controlling bowels or bladder or if sxs worsen. Age-related nuclear cataract of both eyes 2021 Assessment & Plan (06/22/2022 11:28 AM LASER PRINTING OPERATOR): Mild, observe. Symptomatic at night time but does not interfere with activities. Fatigue 05/06/2022 Assessment & Plan (09/27/2024 4:15 PM LASER PRINTING OPERATOR): Probably multifactorial. Check labs and followup to re-evaluate Assessment & Plan (10/03/2023 9:38 PM LASER PRINTING OPERATOR): Probably multifactorial. Check labs and followup to [...] 03/16/2022 Assessment & Plan (06/22/2022 11:34 AM LASER PRINTING OPERATOR): VMT with lamellar hole OS Doing well [...] with me PRN AMD (age-related macular degeneration), bilfedericoa l 11/09/2021 Assessment & Plan (10/03/2023 9:37 PM LASER PRINTING OPERATOR): Continue per Ophthalmology. Patient states her symptoms [...] Supplement Assessment & Plan (10/03/2023 9:37 PM LASER PRINTING OPERATOR): Supplement Assessment & Plan (04/11/2023 10:15 PM CDT): Supplement Assessment & Plan (03/02/2021 1:10 PM CDT): supplement Assessment & Plan (08/30/2020 11:00 PM LASER PRINTING OPERATOR): supplement Assessment & Plan (02/27/2020 8:36 PM CDT): supplement Assessment & Plan (10/26/2019 4:12 PM CDT): supplement Assessment & Plan (07/19/2019 7:33 PM LASER PRINTING OPERATOR): supplement Sciatica of left side 07/16/2019 Assessment & Plan (05/22/2024 1:24 PM CDT): Patient has intermittent sciatica. She is on gabapentin which will help her neck as well as sciatica Assessment & Plan (02/27/2020 8:35 PM CDT): Improved. Will monitor Assessment & Plan (07/19/2019 7:33 PM LASER PRINTING OPERATOR): Continue NSAID, even if otc. Offered PT, but she isn't interested. Call if sxs worsen or don't improve. Moderate episode of recurrent major depressive d isorder 03/08/2019 Assessment & Plan (11/22/2024 8:00 PM CDT): Continue Cymbalta 60 mg b.i.d. symptoms are stable Assessment & Plan (05/22/2024 1:20 PM CDT): Stable with Cymbalta Assessment & Plan (10/03/2023 9:37 PM LASER PRINTING OPERATOR): Patient's depression symptoms have been stable. She [...] medication Assessment & Plan (08/30/2020 11:01 PM LASER PRINTING OPERATOR): Still stable without medication Assessment & Plan (02/27/2020 8:38 PM CDT): Stable without medication. Will continue to monitor. Assessment & Plan (10/26/2019 4:11 PM CDT): weened off the antidepressants. Feeling good. Continue to monitor. Assessment & Plan (07/19/2019 7:35 PM LASER PRINTING OPERATOR): Stable with Lexapro Assessment & Plan (04/01/2019 [...] of continued A1c control to minimize the senior care effects of diabetes. Bring accuchecks to office when instructed to do so. Check A1c about every 3-6 months. Take medication as prescribed. Get annual eye exam. Encouraged NASIR/Statin if able to tolerate. Encouraged weight control and encouraged diabetic diet and exercise. A1c in October of 2024 was 7.1 See cold feet Patient would like to see a grounds worker to assist in diet choices Continue Ozempic 0.5 mg weekly Assessment & Plan (09/27/2024 4:14 PM LASER PRINTING OPERATOR): Stressed importance of continued A1c control to minimize the press tender long goods effects of diabetes. Bring accuchecks to office [...] mg Assessment & Plan (10/03/2023 9:38 PM LASER PRINTING OPERATOR): Encouraged patient to follow low fat/low chol [...] of continued A1c control to minimize the senior care effects of diabetes. Bring accuchecks to office [...] simvastatin Assessment & Plan (08/26/2021 5:03 PM LASER PRINTING OPERATOR): Encouraged patient to follow fat/low chol diet [...] months. Assessment & Plan (08/30/2020 11:01 PM LASER PRINTING OPERATOR): Encouraged patient to follow fat/low chol diet [...] of continued A1c control to minimize the press tender long goods effects of diabetes. Bring accuchecks to office when instructed to do so. Check A1c about every 3-6 months. Take medication as prescribed. Get annual eye exam. Encouraged NASIR/Statin if able to tolerate. Encouraged weight control and encouraged diabetic diet and exercise. Continue jardiance. Metformin 1gm bid --- may decrease to one daily Assessment & Plan (07/19/2019 7:35 PM LASER PRINTING OPERATOR): Encouraged patient to continue low fat/low chol diet. Continue exercise. Increase good fats in the diet. Monitor labs as needed. Continue statin. Change from crestor to simvastatin due to cost/insurance change. Assessment & Plan (04/01/2019 9:06 PM CDT): Stressed importance of continued A1c control to minimize the press tender long goods effects of diabetes. Bring accuchecks to office [...] of continued A1c control to minimize the press tender long goods effects of diabetes. Bring accuchecks to office when instructed to do so. Check A1c about every 3-6 months. Take medication as prescribed. Get annual eye exam. Encouraged NASIR/Statin if able to tolerate. Encouraged weight control and encouraged diabetic diet and exercise. A1c is well controlled at 7.1 Assessment & Plan (05/22/2024 1:19 PM CDT): Stressed importance of continued A1c control to minimize the press tender long goods effects of diabetes. Bring accuchecks to office when instructed to do so. Check A1c about every 3-6 months. Take medication as prescribed. Get annual eye exam. Encouraged NASIR/Statin if able to tolerate. Encouraged weight control and encouraged diabetic diet and exercise. Tightly controlled with the Ozempic 0.5 mg per week Assessment & Plan (10/03/2023 9:37 PM LASER PRINTING OPERATOR): Stressed importance of continued A1c control to minimize the press tender long goods effects of diabetes. Bring accuchecks to office [...] of continued A1c control to minimize the press tender long goods effects of diabetes. Bring accuchecks to office when instructed to do so. Check A1c about every 3-6 months. Take medication as prescribed. Get annual eye exam. Encouraged NASIR/Statin if able to tolerate. Encouraged weight control and encouraged diabetic diet and exercise. Continue Trulicity 0.75mg/week Assessment & Plan (04/11/2023 10:14 PM CDT): Stressed importance of continued A1c control to minimize the senior care effects of diabetes. Bring accuchecks to office [...] of continued A1c control to minimize the senior care effects of diabetes. Bring accuchecks to office [...] of continued A1c control to minimize the senior care effects of diabetes. Bring accuchecks to office [...] of continued A1c control to minimize the press tender long goods effects of diabetes. Bring accuchecks to office when instructed to do so. Check A1c about every 3-6 months. Take medication as prescribed. Get annual eye exam. Encouraged NASIR/Statin if able to tolerate. Encouraged weight control and encouraged diabetic diet and exercise. Well controlled with the Jardiance 25 mg. Continue to monitor closely Assessment & Plan (08/26/2021 5:03 PM LASER PRINTING OPERATOR): Stressed importance of continued A1c control to minimize the senior care effects of diabetes. Bring accuchecks to office when instructed to do so. Check A1c about every 3-6 months. Take medication as prescribed. Get annual eye exam. Encouraged NASIR/Statin if able to tolerate. Encouraged weight control and encouraged diabetic diet and exercise. Continue Jardiance 25 Assessment & Plan (03/02/2021 1:09 PM CDT): Stressed importance of continued A1c control to minimize the press tender long goods effects of diabetes. Bring accuchecks to office when instructed to do so. Check A1c about every 3-6 months. Take medication as prescribed. Get annual eye exam. Encouraged NASIR/Statin if able to tolerate. Encouraged weight control and encouraged diabetic diet and exercise. Tightly controlled with Jardiance. If A1c is still great, will completely stop the metformin. Assessment & Plan (08/30/2020 11:03 PM LASER PRINTING OPERATOR): This is a significant, separately identifiable problem that was evaluated and managed on the same day as the wellness exam Stressed importance of continued A1c control to minimize the press tender long goods effects of diabetes. Bring accuchecks to office [...] of continued A1c control to minimize the senior care effects of diabetes. Bring accuchecks to office [...] hyperlipidemia. Assessment & Plan (07/19/2019 7:35 PM LASER PRINTING OPERATOR): Stressed importance of continued A1c control to minimize the press tender long goods effects of diabetes. Bring accuchecks to office when instructed to do so. Check A1c about every 3-6 months. Take medication as prescribed. Get annual eye exam. Encouraged NASIR/Statin if able to tolerate. Encouraged weight control and encouraged diabetic diet and exercise. Check labs. Continue metformin and Jardiance Assessment & Plan (04/01/2019 9:06 PM CDT): Stressed importance of continued A1c control to minimize the press tender long goods effects of diabetes. Bring accuchecks to office [...] labs. Assessment & Plan (09/27/2024 4:15 PM LASER PRINTING OPERATOR): Continue levothyroxine 88 mcg. Monitor labs. Assessment & Plan (05/22/2024 1:20 PM CDT): Continue levothyroxine 88 mcg. Monitor labs. Assessment & Plan (10/03/2023 9:38 PM LASER PRINTING OPERATOR): Continue levothyroxine. Monitor labs. Assessment & Plan (04/23/2023 7:56 PM CDT): Continue levothyroxine. Monitor labs. Assessment & Plan (04/11/2023 10:14 PM CDT): Continue levothyroxine. Monitor labs. Assessment & Plan (10/24/2022 10:40 PM CDT): Continue levothyroxine. Monitor labs. Assessment & Plan (12/02/2021 8:32 PM CDT): Continue levothyroxine. Monitor labs. Assessment & Plan (08/26/2021 5:03 PM LASER PRINTING OPERATOR): Continue levothyroxine Assessment & Plan (03/02/2021 1:10 PM CDT): Continue levothyroxine. Monitor labs. Assessment & Plan (08/30/2020 11:01 PM LASER PRINTING OPERATOR): Continue levothyroxine Assessment & Plan (02/27/2020 8:38 PM CDT): Continue replacement. Check labs Assessment & Plan (10/26/2019 3:12 PM CDT): TSh is suppressed. Decreased to 88mcg daily Assessment & Plan (07/19/2019 7:33 PM LASER PRINTING OPERATOR): Continue levothyroxine. Check labs Assessment & Plan [...] 11/07/2016 Overview (05/24/2023): Glycosuria;Recorded Elsewhere: No Location: [facility] Source: EHR Chronic: N Practice ID: [id number] Billable Time: 11:30:00 AM Menopausal symptom 05/28/2014 Overview (08/06/2023): Menopausal symptoms;Recorded Elsewhere: No Location: [facility] Source: EHR Chronic: N Practice ID: [id number] Billable Time: 01:00:00 PM Assessment & Plan (02/27/2020 8:41 PM CDT): Check DXA Resolved Problems Problem Noted Date Diagnosed Date Resolved Date Acute cough 06/24/2024 09/27/2024 Acute cough 06/24/2024 09/27/2024 Assessment & Plan (06/24/2024 12:20 PM LASER PRINTING OPERATOR): Due to length of time will send [...] 10/25/19 Assessment & Plan (07/08/2022 12:22 AM LASER PRINTING OPERATOR): Weight/BMI is in healthy range. Continue healthy [...] 08/26/2021 Assessment & Plan (10/03/2023 9:38 PM LASER PRINTING OPERATOR): Encouraged healthy lifestyle, good nutrition and exercise. Encouraged Calcium and Vitamin D and weight bearing exercise for bone health. Reviewed immunizations Reviewed age appropirate screenings. Assessment & Plan (10/24/2022 10:41 PM CDT): Encouraged healthy lifestyle, good nutrition and exercise. Encouraged Calcium and Vitamin D and weight bearing exercise for bone health. Reviewed immunizations Reviewed age appropirate screenings. Assessment & Plan (08/26/2021 5:04 PM LASER PRINTING OPERATOR): Encouraged healthy lifestyle, good nutrition and exercise. [...] will need to return back to the digital project coordinator for possible re-biopsy to determine why she is not responding to the clobetasol. Assessment & Plan (08/26/2021 7:01 PM LASER PRINTING OPERATOR): This is a significant, separately identifiable problem that was evaluated and managed on the same day as the wellness exam Patient has had vulvar itching. Saw the digital project coordinator in a vulvar biopsy was done in June of 2021. The by see showed possible early lichen sclerosis not being able to be ruled out but there was no carcinoma present or atypical lesions. She has not been on clobetasol. The digital project coordinator note alludes to her being on a but patient has not so I am going to start her on clobetasol to the area twice a day to clean skin. Will monitor closely for follow-up in a few months and if not noting improvement may refer to new digital project coordinator and/or consider re-biopsy. BMI 26.0-26.9,adult 03/02/2021 11/14/19 Assessment & Plan (08/26/2021 5:04 PM LASER PRINTING OPERATOR): Weight/BMI is in healthy range. Continue healthy [...] 021 Assessment & Plan (08/30/2020 2:25 PM LASER PRINTING OPERATOR): Weight/BMI is in healthy range. Continue healthy lifestyle to maintain. Annual physical exam 08/30/2020 021 Assessment & Plan (08/30/2020 11:01 PM LASER PRINTING OPERATOR): Encouraged healthy lifestyle, good nutrition and exercise. Encouraged Calcium and Vitamin D and weight bearing exercise for bone health. Reviewed immunizations Reviewed age appropirate screenings. Chronic left shoulder pain 08/30/2020 1 Assessment & Plan (08/30/2020 11:02 PM LASER PRINTING OPERATOR): This is a significant, separately identifiable problem that was evaluated and managed on the same day as the wellness exam Has been seeing Ortho. Had a few injections, but not getting consistent relief. Recommend PT. Order provided. Followup if sxs dont improve. Colon cancer screening 08/30/202010/24 Assessment & Plan (08/26/2021 7:00 PM LASER PRINTING OPERATOR): Has colonoscopy scheduled 08/[address] Olson Assessment & Plan (03/02/2021 1:10 PM CDT): Refer to Dr. Eason Assessment & Plan (08/30/2020 11:03 PM LASER PRINTING OPERATOR): Screening due with Dr. Olson. Will send [...] provided Assessment & Plan (08/26/2021 5:03 PM LASER PRINTING OPERATOR): Mammogram order provided Assessment & Plan (03/02/2021 1:10 PM CDT): Mammogram order provided Assessment & Plan (08/30/2020 11:01 PM LASER PRINTING OPERATOR): Mammogram order provided Assessment & Plan (02/27/2020 [...] 10/26/2019 Assessment & Plan (07/19/2019 7:36 PM LASER PRINTING OPERATOR): Probably multifactorial. Check labs and followup to [...] 10/26/2019 Assessment & Plan (07/19/2019 7:35 PM LASER PRINTING OPERATOR): Continue Lexapro Assessment & Plan (04/01/2019 9:09 [...] maintain. Assessment & Plan (10/03/2023 9:38 PM LASER PRINTING OPERATOR): Weight/BMI is in healthy range. Continue healthy [...] index (BMI) 30.0-30.9, adult;Recorded Elsewhere: No Location: [facility] Source: EHR Chronic: N Practice ID: [id number] Billable Time: 03:00:00 PM Assessment & Plan (10/24/2022 1:19 PM CDT): Weight/BMI is in healthy range. Continue healthy lifestyle to maintain. Obesity 05/28/2014 10/03/2023 Overview (07/30/2023): Obesity, unspecified;Practice ID: [id number] Assessment & Plan (11/13/2021 9:44 AM CDT): Weight/BMI is in healthy range. Continue healthy lifestyle to maintain. Immunizations Immunization Administration Dates Next Due Influenza, [...] (Arexvy) 08/28/2023 Tdap 04/01/2019 ZOSTER Recombinant 02/07/2019,11/19/2018 Social History Tobacco Use Types Packs/Day Years [...] on file Legal Sex Female 8:39 PM LASER PRINTING OPERATOR Gender Identity Female 10/19/2019 9:11 AM CDT Sexual Orientation Not on file Occupation Industry Job Start Date Job End Date Retired Not on file Not on file Not on file Last Filed Vital Signs Vital Sign Reading [...] 01/14/2025 4:17 PM CDT Plan of Treatment Not on file Goals Goal Patient Goal Type Associated Problems Recent Progress Patient-Stated? Author CCM Chronic Pain Care Plan Chronic Care Management No change(10/01 12:46 PM LASER PRINTING OPERATOR) Radha Cummings, JORGE Note: Problem: Chronic Pain Goals: 1. Minimize further functional decline 2. Maximize quality of life 3. Control pain Strategies: - Activity/exercise program recommendation - Conservative stepwise pain medicine strategy with multi-disciplinary approach - Recommend healthy lifestyle strategies and compensatory methods as needed Reduce the likelihood of falling Lifestyle Radha Cummings, JORGE Note: Below are four things you can [...] on stairs Contact your local community or [facility] for information on exercise, fall prevention programs, or options for improving home safety. Medical Devices Implanted Type Area Natural Resource Economist Device Identifier Shelf Expiration Date Model / Serial / Lot [employer] Inc/C R ApprenNet Phasix 8x6in Monofilament Scaffold Full Resorbable Rectangle Mesh [id number] - [id number] Implanted:Qty: 1 on 11/30/2024 by Josiah Reid MD at [facility] Mesh N/A: Abdomen [employer] Inc/C R Bard [id number] 06/01/2026 [id number] / / [id number] Ethical Deals [employer] Sims Microvascular 2mm Ring Pin Protective Cover Jaw Assembly Latex Free [id number] - [id number] Implanted:Qty: 1 on 03/19/2024 by Josiah Reid MD at [facility] Other - see comments Left: Breast [employer]is [employer] [id number] 05/23/2028 [id number] / / [id number] SibaritusntSarkitech Sensors Polymer Chemist Tissue 15x13.8cm Breast 600-720cc Smooth Srfc Allox2-Fh15se - [id number] - [id number] Implanted:Qty: 1 on 07/22/2023 by Josiah Reid MD at [facility] Explanted:10/15 (Quantity not on file) Left: Breast Sient[employer] Inc 12/20/2027 ALLOX2-FH 15SE / [id number] Description:tissue expanders were removed sometime in Procedures [...] of reconstructed breast Infection of breast tissue cloth grader supervisor, subsequent encounter Malignant neoplasm of left female [...] of reconstructed breast Infection of breast tissue cloth grader supervisor, subsequent encounter Malignant neoplasm of left female breast, unspecified estrogen receptor status, unspecified site of breast (HCC) 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, 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 REVISION SCAR - ABDOMINAL 11/30/2024 10:22 AM CDT S/P breast reconstruction Deformity and disproportion of reconstructed breast Infection of breast tissue cloth grader supervisor, subsequent encounter Malignant neoplasm of left female breast, unspecified estrogen receptor status, unspecified site of breast (HCC) 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, 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 FAT GRAFTING - BREAST 11/30/2024 10:22 AM CDT S/P breast reconstruction Deformity and disproportion of reconstructed breast Infection of breast tissue cloth grader supervisor, subsequent encounter Malignant neoplasm of left female breast, unspecified estrogen receptor status, unspecified site of breast (HCC) 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, 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 REVISION BREAST 11/30/2024 10:22 AM CDT S/P breast reconstruction Deformity and disproportion of reconstructed breast Infection of breast tissue cloth grader supervisor, subsequent encounter Malignant neoplasm of left female [...] Routine) 11/12/2024 1:56 PM CDT Acute cough HM DIABETES EYE EXAM Routine 11/05/2024 2:17 PM [...] - DEVICE Final Result Performing Organization Address City/[facility]/ZIP Co de Phone Number [facility] [place] [address] * POCT glucose (12/01/2024 8:31 AM CDT) Glucose, POC 137 70 - 199 mg/dL Blood 12/01/2024 8:31 AM CDT 12/01/2024 8:31 AM CDT us Josiah Reid MD LAB POCT ORDERABLES - DEVICE Final Result Performing Organization Address City/[facility] Co de Phone Number [facility] [place] [address] * (ABNORMAL) POCT glucose (11/30/2024 9:08 PM CDT) Glucose, POC 229(H) 70 - 199 mg/dL Blood 11/30/2024 9:08 PM CDT 11/30/2024 9:08 PM CDT us Josiah Reid MD LAB POCT ORDERABLES - DEVICE Final Result Performing Organization Address City/[facility]/ZIP Co de Phone Number [facility] [place] [address] * (ABNORMAL) POCT glucose (11/30/2024 6:12 PM CDT) Glucose, POC 202(H) 70 - 199 mg/dL Blood 11/30/2024 6:12 PM CDT 11/30/2024 6:12 PM CDT us Josiah Reid MD LAB POCT ORDERABLES - DEVICE Final Result Performing Organization Address [facility] de Phone Number [facility] [place] [address] * POCT glucose (11/30/2024 1:49 PM CDT) Glucose, POC 177 70 - 199 mg/dL Blood 11/30/2024 1:49 PM CDT 11/30/2024 1:49 PM CDT Josiah Reid MD LAB POCT ORDERABLES - DEVICE Final Result Performing Organization Address [facility] Co de Phone Number [facility] [place] [address] * POCT glucose (11/30/2024 1:00 PM CDT) Glucose, POC 162 70 - 199 mg/dL Blood 11/30/2024 1:00 PM CDT 11/30/2024 1:00 PM CDT Josiah Reid MD LAB POCT ORDERABLES - DEVICE Final Result Performing Organization Address [facility] Co de Phone Number [facility] [place] [address] * Surgical pathology (11/30/2024 11:20 AM CDT) Tissue (Breast, excisional biopsy/ partial mastectomy) 11/30/2024 11:20 AM CDT Narrative PATHOLOGY [facility] - 12/02/2024 8:20 AM CDT EPIC results best viewed via link to PDF [facility] [place] [address] Note to Patients: This report may contain [...] Gender: F : 1955 (Age: 69) Address: [address] [place], [place] [id number] Hospital #: [id number] Taken:11/30/2024 Received:11/30/2024 Reported: 12/02/2024 Patient Type: [facility] OP In Bed Service: Surgery Location: [place] [address] Physician(s): Sulaiman Wild MD Shawna R. Swinigan, PA-C Diagnosis: Skin, left breast, breast reconstruction - Benign skin with reparative changes - No evidence of atypia or malignancy [facility]/12/02/2024 06:23 By this signature, I attest that [...] cm). Serial sections show no focal masses. Rand Butter sections are submitted in cassette A1. Jar 1 bao2/11/30/2024 16:09 PA(s): JORDON Vargas (ASCMahnaz)CM By this signature, I attest that the above diagnosis is based upon my personal examination of the slides(and/or other material). Addenda/Procedures The performance characteristics of some immunohistochemical stains, fluorescence in-situ hybridization tests and immunophenotyping by flow cytometry cited in this report (if any) were determined by the Surgical Pathology and Flow Cytometry Departments at [facility] as part of an ongoing chief vendor quality program and in compliance with federally mandated [...] Surgical Pathology and Flow Cytometry Departments of [facility]. It has not been cleared or approved by the U. S. Food and Drug Administration. IMAGES AND SCANNED DOCUMENTS, IF INCLUDED, ONLY VIEWABLE IN PDF VERSION OF REPORT us Josiah Reid MD LAB PATHOLOGY ORDERABLES Nathaly yang Result PATHOLOGY [facility] [address] Floor [place], [place] [phone] * POCT glucose (11/30/2024 10:54 AM CDT) Glucose, POC 135 70 - 199 mg/dL Blood 11/30/2024 10:5 4 AM CDT 11/30/2024 10:54 AM CDT us Josiah Reid MD LAB POCT ORDERABLES - DEVICE Final Result Performing Organization Address [facility] Co de Phone Number JOHN [facility] Vanessa [facility] [place] [address] * Airway (11/30/2024 10:38 AM CDT) Narrative [...] - DEVICE Final Result Performing Organization Address [facility]/ZIP Co de Phone Number JOHN COPPOLA One [facility] [place] [address] * XR Chest PA Lateral 2 Views (11/12/2024 1:56 PM CDT) Anatomical Region Laterality Modality Body, Chest N/A Radiographic Neris ging Renee RUVALCABA IMG XR PROCEDURES Final Re sult * HM DIABETES EYE EXAM (11/05/2024 2:17 PM CDT) SCRIBED DIABETIC DILATED EYE EXAM Normal Impressions Mejia JennyAMITA - 11/05/2024 2:17 PM CDT OD: 20/30 [...] LAB URINE ORDERABLES Final Result [facility] [address] [address] * (ABNORMAL) Hemoglobin A1c (10/13/2024 10:20 AM CDT) Pathologist [facility] Hgb A1C 7.1(H) <5.7 % of total Hgb [facility] Comment: For someone without known diabetes, [...] Renee RUVALCABA LAB BLOOD ORDERABLES Final Result [facility] [address] [place] [address] * Lipid panel (10/13/2024 10:20 AM CDT) [facility] Cholesterol 171 <200 mg/dL [facility] HDL 82 > OR = 50 mg/dL [facility] alphonso Tapia Triglycerides 132 <150 mg/dL [facility] alphonso Tapia LDL 67 mg/dL (calc) [facility] Comment: Reference range: <100 Desirable range <100 mg/dL for primary prevention; <70 mg/dL for patients with CHD or diabetic patients with > or = 2 CHD risk factors. LDL-C is now calculated using the Jerald-Raphael calculation, which is a validated novel method providing better accuracy than the Friedewald equation in the estimation of LDL-C. Jerald GARCIA et al. OSCAR. 2013;310(19): 3463-1794 (http://education.BuildForge.OP3Nvoice/faq/NJG253) Chol/HDL ratio 2.1 <5.0 (calc) [facility] al[facility] Tapia Non-HDL, (LDL+VLDL) 89 <130 mg/dL (calc) [facility] alphonso Tapia Comment: For patients with diabetes plus 1 major ASCVD risk factor, treating to a non-HDL-C goal of <100 mg/dL (LDL-C of <70 mg/dL) is considered a therapeutic option. Blood 10/13/2024 10:2 0 AM CDT 10/13/2024 10:21 AM CDT Narrative [facility] - 10/14/2024 3:50 AM CDT FASTING:YES FASTING: YES us Renee RUVALCABA LAB BLOOD ORDERABLES Final Result [facility] [address] [place] [address] * (ABNORMAL) Comprehensive metabolic panel (10/13/2024 10:20 AM CDT) Glucose 159(H) 65 - 99 mg/dL [facility] Comment: Fasting reference interval For someone without known diabetes, a glucose value >125 mg/dL indicates that they may have diabetes and this should be confirmed with a follow-up test. BUN 15 7 - 25 mg/dL [facility] werner Willie Creatinine 0.53(L) 0.60 - 1.00 mg/dL [facility] alphonso Tapia eGFR 99 > OR = 60 mL/min/1.7 3m2 [facility] werner Willie BUN/creat ratio 28(H) 6 - 22 (calc) [facility] alphonso Tapia Sodium 138 135 - 146 mmol/L [facility] al[facility]so Tapia Potassium, pl 4.0 3.5 - 5.3 mmol/L [facility] Tap[facility] Chloride 104 98 - 110 mmol/L [facility] alphonso Tapia CO2 26 20 - 32 mmol/L [facility] al[facility]so Tapia Calcium 9.2 8.6 - 10.4 mg/dL [facility] alphonso Tapia Protein, sr 6.2 6.1 - 8.1 g/dL [facility] Tap[facility] Albumin 4.3 3.6 - 5.1 g/dL [facility] Tapia GLOBULIN 1.9 1.9 - 3.7 g/dL (calc) [facility] Alb/glob ratio 2.3 1.0 - 2.5 (calc) [facility] Bilirubin, total 0.4 0.2 - 1.2 mg/dL [facility] Alk phos 76 37 - 153 U/L [facility] AST 25 10 - 35 U/L [facility] ALT (SGPT) 102(H) 6 - 29 U/L [facility] Blood 10/13/2024 10:2 0 AM CDT 10/13/2024 10:21 AM CDT Narrative [facility] - 10/14/2024 3:50 AM CDT FASTING:YES FASTING: YES us Renee RUVALCABA LAB BLOOD ORDERABLES Final Result [facility] [address] [place] [address] * Screening Mammogram Right W Irineo Unilateral [...] age 39, based on guidelines of the [employer] (ACR Practice Parameter for the Performance of Screening and Diagnostic Mammography) and [employer]. For women [...] Colonoscopy (08/31/2021) Anatomical Region Laterality Modality Other Historical Provider ENDOSCOPY PROCEDURES Edit ed Result - Final * HM DEXA SCAN (06/23/2021) Juliane Fishman MD HEALTH MAINTENANCE Final R esult from Last 3 Months or Most Recently Relevant to Health Maintenance Additional Health Concerns Infection Onset Date Last Indicated MDR gram neg/ESBL 10/17/2023 10/17/2023 Insurance [facility] Member Subscriber Plan / Payer (Ef fective 2021-Present) Name:Arabella Mijares Relation to Subscriber:Self Name:Arabella Mijares Payer ID:[id number] (NAIC) Type:MEDICARE RISK OTHER Address: [address] [facility] Advance Directives For more information, please contact: [phone] Documents on File Type Date Recorded Patient Rand Butter Expl anation ADVANCE DIRECTIVE 03/25/2024 12:15 AM POLS T * Full Code (Latest Code Status on File) Date Activated Date Inactivated Comments 11/30/2024 4:07 PM 12/01/2024 6:51 PM * Full Code Date Activated Date Inactivated Comments 03/19/2024 5:03 PM 03/22/2024 3:42 PM Care Teams Car Deliverer Relationship Specialty Start Date End Date Renee Melo PA [address] [place] [address] PCP - General Internal Medicine 02/16/19 GrindstoneJuliane villalba MD [address] DIV IM MEDICAL ONCOLOGY, [address] [place] [address] Surgeon Medical Oncology 09/03/24
--- OUTSIDE RECORDS SUMMARY | 2025-01-19 14:57 | XMS_ITS | Encounter Summary ---
Author Organization [facility] Facility Care Team Providers Care Client Solutions Director Name Role Phone Renee Melo Primary Care Provider [phone] Vidya Bustillos LPN Unavailable [phone] Juliane Garcia MD Unavailable Encounter Details Date Type Department Care Team (Latest Contact Info) Description 01/17/2017 Orders Only [facility] CLINCONV ProviderAndrez MD [address] [place] [address] Social History Tobacco Use Types Packs/Day Years Used Date Smoking Tobacco: Never Assessed Comments Unknown Sex and Gender Information Value Date Recorded Sex Assigned at Not on file Legal Sex Female 8:39 PM CASING FLUSHER Gender Identity Female 10/19/2019 9:11 AM CDT Sexual Orientation Not on file documented as of this encounter Plan of Treatment Not on file documented as of this encounter Procedures Procedure Name Priority Date/Time Associated Diagnosis Comments SCAN - LABS 01/17/2017 12:00 AM CDT documented in this encounter Results * SCAN - LABS (01/17/2017 12:00 AM CDT) Narrative 01/17/2017 12:00 AM CDT Ordered by an unspecified provider. Historical Provider Final Res ult documented in this encounter Visit Diagnoses Not on filedocumented in this encounter Additional Health Concerns Infection Onset Date Last Indicated Resolved Time MDR gram neg/ESBL 10/17/2023 10/17/2023 documented as of this encounter Care Teams Client Solutions Director Relationship Specialty Start Date End Date Renee Melo PA [address] [place] [address] PCP - General Internal Medicine 02/16/19 Vidya Bustillos, BORA [address] [place] [address] Marine Service Operator 03/24/24 03/24/24 Juliane Garcia MD [address] [facility] [address] DIV IM MEDICAL ONCOLOGY, [facility] [address] [place] [address] Surgeon Medical Oncology 09/03/24 documented as of this encounter
--- OUTSIDE RECORDS SUMMARY | 2025-01-19 14:57 | XMS_ITS | Data Portability ---
Author Organization [facility] [place] Address [address] [place] [address] Care Team Providers Care Art Framing Manager Name Role Phone PAO BURT Primary Care Provider [phone] Assessment Encounter Date Assessment Date Assessment LastModified by Organization Details LastModified Time 03/13/2021 03/13/2021 STD testing done per patient preference Already on diflucan, complete course Will notify with any abnormal results Call office if symptoms worsening or not improving with treatment Follow up for WWE next month. [email or web address] Not available 03/13/2021 13:14:52 04/07/2021 04/07/2021 healthy female exam/menopaus e patient declines std testing pap-none further mammogram ordered and encouraged colonoscopy dexa ordered and encouraged Encouraged weight bearing exercise and 1500mg daily of Calcium with Vitamin D FU 1 year or prn [email or web address] Not available 04/07/2021 14:01:56 07/03/2021 07/03/2021 vulvar biopsy done. continue estrace diflucan x1. if no dermatosis, weekly diflucan. [email or web address] Not available 07/03/2021 09:57:47 Plan of Treatment Reminders Order Date Submit Date Provider Last Modified By Organization Details Last Modified Time Details Appointments None recorded. Lab None recorded. Referral None recorded. Procedures None recorded. Surgeries None recorded. Imaging None recorded. Medication Orders Osphena 60 mg tablet 2021 022 [email or web address] [address] [place] [address], [address], 13:18:24 tacrolimus 0.1 % topical ointment 2021 022 [facility], [address] [facility], [place], [address], 15:20:59 Diflucan 150 mg tablet 2020 021 [email or web address] ch1 [facility], [address] [facility], [place], [address], 15:15:34 valacyclovi r 500 mg tablet 2020 021 [facility], [address] [facility], [place], [address], 13:56:13 Patient TargetsNo targets recorded. Patient InstructionsNo instructions recorded. Reason for Referral None Reported. Results Created Date Observation Date Name Description Value Unit Range Abnormal Flag Note LastModifiedBy Organization Detail LastModifiedTime 03/13/2003/13/2021 CT/GC AND TRICH OMONA S VAGIN LISA (RRNA ), SWAB chlamydia trachomatis, PCR Negati ve negati ve Not Available [facility] (Lab) [address] [place], [address], 03/14/2021 12:03:31 03/13/20 21 03/13/2021 CT/GC AND TRICH OMONA S VAGIN LISA (RRNA ), SWAB neisseria gonorrhoeae, PCR Negati ve negati ve Not Available [facility] (Lab) [address] [facility], [place], [address], 03/14/2021 12:03:31 03/13/20 21 03/13/2021 CT/GC AND TRICH OMONA S VAGIN LISA (RRNA ), SWAB trichomonas vaginalis ribosomal RNA (rrna) Negati ve negati ve Not Available [facility] (Lab) [address] [facility], [place], [address], 03/14/2021 12:03:31 04/07/20 21 04/07/2021 VAGIN ITIS/ VAGIN OSIS, DNA PROBE thi sp. detection, direct probe Negati ve negati ve Not Available [facility] (Lab) [address] [place], [address], 04/08/2021 09:56:32 04/07/20 21 04/07/2021 VAGIN ITIS/ VAGIN OSIS, DNA PROBE gardnerella vag. detection, direct probe Negati ve negati ve Not Available [facility] (Lab) [address] [facility], [place], [address], 04/08/2021 09:56:32 04/07/20 21 04/07/2021 VAGIN ITIS/ VAGIN OSIS, DNA PROBE trichomonas vag. detection, direct probe Negati ve negati ve Not Available [facility] (Lab) [address] [facility], [place], [address], 04/08/2021 09:56:32 07/03/20 21 07/03/2021 SURGI NAI PATHO LOGY surgical pathology SEE RESULT S BELOW CASE REPOR T: Surgi nai Patho logy Repor t Case: [id number] Autho bartolo Provi dafne: Juliane Majano MD Colle cted: 07/03 1533 Order ing Locat ion: [place] [facility] Recei sylvia: 07/04 0058 Patho logis t: Wilbert Calero MD Speci men: Vulva , vulva r biops y FINAL DIAGN OSIS: Vulva , biops y: -Spon gioti c derma titis consi stent with an eczem atous proce ss, see comme nt Elect ratna avalos d by Wilbert Calero MD on 2020 at 1:47 PM ----- ----- ----- ----- ----- ----- ----- ----- ----- ----- ----- ----- ----- ----- ----- ----- ----- ---- COMME NT: PAS diast ase, Sox 10 and CK7 stain s were utili zed. No organ isms, atypi nai melan ocyti c lesio n or carci noma are ident ified . Early liche n scler osis canno t be exclu ded. CLINI NAI INFOR MATIO N: NOT PROVI DED MICRO SCOPI C DESCR IPTIO N: A micro scopi c exami natio n was perfo rmed. This test was devel oped and its perfo rmanc e new cteri stics deter mined by [facility]. It has not been clear ed or appro sylvia by the U. S. Food and Drug Admin istra tion. The FDA has deter mined that such clear ance or appro isi is not neces brendan. This test may be used for clini nai purpo se. It shoul d not be regar ded as inves tigat ional or for resea rch. This labor atory is certi fied under the Clini nai Labor atory Impro vemen t Amend ments of 1987 (CLIA ) as quali fied to perfo rm high compl exity clini nai labor atory testi ng. In cases which have decal cifie d tissu es, the resul ts shoul d be inter prete d with cauti on given the possi bilit y of false negat amy. The posit mejia contr ols demon strat e appro priat e posit mejia stain ing. The known tissu e negat mejia contr ols are negat mejia. The non-i mmune serum contr ol was non-r eacti ve. GROSS DESCR IPTIO N: A. Vulva . The speci men is label ed with the patie nt's name, demog raphi cs and vulv ar biops y. Recei sylvia in forma allison is a 0.5 cm piece of white -bacon tissu e. The entir e speci men is submi tted in one casse tte. Gross ed by Jenny godoy Not Available [facility] (Lab) [address], [place], [address], 07/06/2021 14:51:06 03/21/20 22 03/21/2022 VAGIN ITIS/ VAGIN OSIS, DNA PROBE thi sp. detection, direct probe Positi ve negati ve abnormal Not Available [facility] [address] [place], [address], 03/23/2022 00:31:21 03/21/20 22 03/21/2022 VAGIN ITIS/ VAGIN OSIS, DNA PROBE gardnerella vag. detection, direct probe Negati ve negati ve Not Available [facility] [address] [place], [address], 03/23/2022 00:31:21 03/21/20 22 03/21/2022 VAGIN ITIS/ VAGIN OSIS, DNA PROBE trichomonas vag. detection, direct probe Negati ve negati ve Not Available [facility] [address] [place], [address], 03/23/2022 00:31:21 06/23/20 21 06/23/2021 DEXA, axial skele ton + verte bral fract ure asses sment No observ ation record ed. [facility] [address] [address], [place], [address], 06/26/2021 12:39:37 Result Notes None recorded. Problems Name Problem SNOMED Code Status Onset Date Resolution Date Notes Provider Name and Address Organization Details Recorded Time Screenin g for malignan t neoplasm of rectum Completed 201603/13/2021 Encounte r for screenin g for malignan t neoplasm of rectum;P ractice ID: [id number] Juliane Fishman MD [address], [place], [address], [facility] 13:09:[address] Concept Completed 201703/13/2021 Encntr for general adult medical exam w/o abnormal findings ;Practic e ID: 0001 Juliane Fishman MD [address], [place], [address], [facility] 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 13:09:50 Menopaus e present [id number] Completed 201803/21/2022 Menopaus al and female climacte lux states;P ractice ID: 0001 Joana diez, [facility] 2 14:10:11 Speciali zed medical examinat ion Completed 201303/13/2021 Gynecolo gical Examinat ion;Tommy rded Elsewher e: No Locat ion: [facility] S ource: EHR Modeling Manager arleen: N Practi ce ID: 0001 Harshal lable Time: 01:00:00 PM Juliane Fishman MD [address], [place], [address], [facility] 13:09:53 Menopaus al symptom 53892311 Completed 201303/13/2021 Menopaus al symptoms ;Recorde d Elsewher e: No Locat ion: [facility] S ource: EHR Modeling Manager arleen: N Practi ce ID: 0001 Harshal lable Time: 01:00:00 PM Juliane Fishman MD [address], [place], [address], [facility] 13:09:23 Glycosur ia 98415921 Completed 201603/13/2021 Glycosur ia;Recor ded Elsewher e: No Locat ion: [facility] S ource: EHR Modeling Manager arleen: N Practi ce ID: 0001 Harshal lable Time: 11:30:00 AM Juliane Fishman MD [address], [place], [address], [facility] 1 13:09:26 Obesity 226153739 Completed 201303/13/2021 Obesity, unspecif ied;Prac jorge ID: [id number] Juliane Fishman MD [address], [place], [address], [facility] 1 13:09:33 Screenin g for malignan t neoplasm of cervix Completed 201303/13/2021 Pap Smear;Pr actice ID: 0001 Juliane Fishman MD [address], [place], [address], [facility] 1 13:09:[address] Concept Completed 201603/13/2021 Encounte r for general adult medical exam w abnormal findings ;Practic e ID: [id number] Juliane Fishman MD [address], [place], [address], [facility] 1 13:09:30 Body mass index 30+ - obesity 115113432 Completed 201503/21/2022 Body mass index (BMI) 30.0-30. 9, adult;Re corded Elsewher e: No Locat ion: [facility] S ource: EHR Modeling Manager arleen: N Practi ce ID: 0001 Harshal lable Time: 03:00:00 PM Joana diez [facility] 2 14:10:11 Osteopen ia 861605523 Completed 202003/21/2022 Joana diez [facility] 2 14:10:11 Problem Notes None recorded. Procedures Surgical History Date Name Laterality Status Provider Name and Address Organization Details Recorded Time 07/03/20 21 Vulvar Biopsy completed Juliane Fishman MD [address], [place], [address], [place] [facility] 07/03/2021 09:53:49 01/08/20 Date of Last Pap Smear completed [facility] 03/13/2021 12:46:33 08/05/19 02 Carpal tunnel surgery completed [facility] 03/13/2021 12:47:39 08/05/19 00 Total Hysterectomy completed [facility] 03/13/2021 12:48:44 Imaging Results None recorded. Procedure Notes None recorded. Medical Equipment None Reported. Medications Name Sig Start Date Stop Date Status Note LastModified by Organization Details LastModified Time buspirone 5 mg tablet take 1 tablet by oral route 2 times every day 03/13 completed Prescrib ed Elsewher e: Yes Loca tion: [facility] odify By: cullen Cunningham ter DateTime : 04/14/20 02:57:57 PM Not Available Not Available Not Available nystatin 100,000 unit/gram topical ointment apply by topical route 2 times every day to the affected area(s) 11/07 completed Prescrib ed Elsewher e: No Locat ion: [facility] odify By: johnna mcdonald DateTime : 05/28/20 14 01:00:00 PM Not Available Not Available Not Available fluconazo le 150 mg tablet Take 1 tablet by oral route. 03/21 completed Not Available Not Available Not Available fluconazo le 200 mg tablet TAKE 1 TABLET BY MOUTH EVERY OTHER DAY active Not Available Not Available No t Available Paxil 20 mg tablet take 1 tablet by oral route every day 04/14 completed Prescrib ed Elsewher e: No Locat ion: [facility] odify By: cullen Cunningham ter DateTime : 03/26/20 19 01:00:00 PM Not Available Not Available Not Available clobetaso l 0.05 % topical cream APPLY CREAM TOPICALL Y TWICE DAILY 03/21 completed Not Available Not Available Not Available simvastat in 80 mg tablet TAKE 1 TABLET BY MOUTH NIGHTLY active Not Available Not Available No t Available valacyclo vir 500 mg tablet TAKE 4 TABLETS BY MOUTH A ONE TIME DOSE FOR HSV OUTBREAK active Not Available Not Available No t Available tramadol 50 mg tablet TAKE 1 TABLET BY MOUTH EVERY 6 HOURS NEEDED FOR PAIN active Not Available Not Available No t Available simvastat in 40 mg tablet TAKE 1 TABLET BY MOUTH NIGHTLY 04/07 completed Not Available Not Available Not Available ketorolac 0.5 % eye drops INSTILL 1 DROP INTO LEFT EYE 4 TIMES DAILY 03/21 completed Not Available Not Available Not Available meloxicam 7.5 mg tablet take 2 tablet by oral route every day 03/25 completed Prescrib ed Elsewher e: Yes Loca tion: [facility] By: gabriel Fischer ncounter DateTime : 11/08/19 11:30:00 AM Not Available Not Available Not Available levothyro xine 88 mcg tablet TAKE 1 TABLET BY MOUTH ONCE DAILY active Not Available Not Available No t Available prednisol one acetate 1 % eye drops,bibi pension INSTILL 1 DROP INTO LEFT EYE 4 TIMES DAILY 03/21 completed Not Available Not Available Not Available tacrolimu s 0.1 % topical ointment APPLY A THIN LAYER TO THE AFFECTED AREA(S) BY TOPICAL ROUTE 2 TIMES PER DAY ; RUB IN GENTLY AND COMPLETE LY with max of 6wks use. active Not Available Not Available No t Available metformin 1,000 mg tablet take 1 tablet by oral route 2 times every day with morning and evening meals 04/07 completed Prescrib ed Elsewher e: Yes Loca tion: [facility]ify By: johnna Fischer ncounter DateTime : 11/08/19 11:30:00 AM Not Available Not Available Not Available clotrimaz ole-betam ethasone 1 %-0.05 % topical cream APPLY CREAM TOPICALL Y TWICE DAILY 03/21 completed Not Available Not Available Not Available estradiol 0.01% (0.1 mg/gram) vaginal cream INSERT 0.5 GRAMS VAGINALL Y NIGHTLY FOR 1 MONTH AND THEN USE TWICE WEEKLY 2021 active Not Available Not Available Not Avai lable Vitamin D2 1,250 mcg (50,000 unit) capsule take 1 capsule by oral route every week 03/13 completed Prescrib ed Elsewher e: No Locat ion: [facility] odify By: callie mcdonald DateTime : 04/20/20 19 01:50:23 PM Not Available Not Available Not Available Paxil 10 mg tablet take 1 tablet by oral route every day 11/07 completed Prescrib ed Elsewher e: No Locat ion: [facility] odify By: johnna mcdonald DateTime : 05/31/20 14 04:19:49 PM Not Available Not Available Not Available escitalop nelly 5 mg/5 mL oral solution take 10 millilit er by oral route every day 03/13 completed Prescrib ed Elsewher e: Yes Loca tion: [facility] odify By: cullen mendosa DateTime : 04/14/20 19 02:57:57 PM Not Available Not Available Not Available Crestor 5 mg tablet take 2 tablet by oral route every day 03/21 completed Prescrib ed Elsewher e: Yes Loca tion: [facility] odify By: gbariel mcdonald DateTime : 03/25/20 18 01:00:00 PM Not Available Not Available Not Available Vytorin 10 mg-10 mg tablet take 1 tablet by oral route every day 03/25 completed Prescrib ed Elsewher e: Yes Loca tion: [facility] odify By: gabriel mcdonald DateTime : 05/28/20 14 01:00:00 PM Not Available Not Available Not Available Tirosint 13 mcg capsule take 1 capsule by oral route every day 03/21 completed Prescrib ed Elsewher e: Yes Loca tion: [facility] odify By: juanito villalba DateTime : 03/26/20 19 01:00:00 PM Not Available Not Available Not Available tramadol ER 300 mg capsule 24 hr,extend ed release take 1 capsule by oral route every day 03/13 completed Prescrib ed Elsewher e: Yes Loca tion: [facility] odify By: cullen mendosa DateTime : 04/14/20 02:57:57 PM Not Available Not Available Not Available Osphena 60 mg tablet Take 1 tablet every day by oral route for 90 days. 2021 active Not Available Not Available Not Avai lable Brisdelle 7.5 mg capsule take 1 capsule by oral route every day at bedtime 11/07 completed Prescrib ed Elsewher e: No [facility]at [facility] odify By: johnna mcdonald DateTime : 05/28/20 14 01:00:00 PM Not Available Not Available Not Available Jardiance 10 mg tablet take 1 tablet by oral route every day in the morning 07/03 completed Prescrib ed Elsewher e: Yes Loca tion: [facility] By: jalexa villalba DateTime : 03/26/20 19 01:00:00 PM Not Available Not Available Not Available Jardiance 25 mg tablet TAKE 1 TABLET BY MOUTH ONCE DAILY active Not Available Not Available No t Available Vitals Date Recorded Body height Body mass index (BMI) Body weight Systolic blood pressure Diastolic blood pressure Provider Name and Address Organization Details Last Updated DateTime 03/13/2021 157.48 cm 25.6 kg/m2 95067.93 g 144 mm[Hg] 83 mm[Hg] Phyllis Brooke [facility] 1 12:45:10 Date Recorded Body height Body mass index (BMI) Body weight Systolic blood pressure Diastolic blood pressure Provider Name and Address Organization Details Last Updated DateTime 03/21/2022 157.48 cm 27.6 kg/m2 63095.45 g 126 mm[Hg] 80 mm[Hg] Joana Jordan [facility] 2 14:45:10 Date Recorded Body height Body mass index (BMI) Body weight Systolic blood pressure Diastolic blood pressure Provider Name and Address Organization Details Last Updated DateTime 04/07/2021 157.48 cm 26.3 kg/m2 60558.3 g 129 mm[Hg] 73 mm[Hg] [facility] 12:34:12 Date Recorded Body height Body mass index (BMI) Body weight Systolic blood pressure Diastolic blood pressure Provider Name and Address Organization Details Last Updated DateTime 07/03/2021 157.48 cm 27.1 kg/m2 70181.67 g 148 mm[Hg] 74 mm[Hg] Phyllis Garner [facility] 09:32:45 Social History Question Answer Notes LastModified by [employer] Details LastModified Time Tobacco Smoking Status Current Every Day Smoker Joana Jordan chary, [facility] 03/21/2022 14:46:42 Are You Blind Or Do You Have Difficulty Seeing? No Information not available 03/21/2022 How Much Tobacco Do You Chew? None Information not available 03/21/2022 Have You Been To An Area Known To Be High Risk For COVID-19? No Information not available 03/21/2022 Are You Deaf Or Do You Have Serious Difficulty Hearing? No Information not available 03/21/2022 What Is The Highest Grade Or Level Of School You Have Completed Or The Highest Degree You Have Received? EE51091-4 Information not available 03/21/2022 Are There Any Guns Present In Your Home? No Information not available 03/21/2022 Do You Use Your Seat Belt Or Car Seat Routinely? Yes Information not available 03/21/2022 Do You Have Smoke And Carbon Monoxide Detectors In Your Home? Yes Information not available 03/21/2022 How Much Tobacco Do You Smoke? No Information not available 03/21/2022 Do You Use Sunscreen Routinely? Yes Information not available 03/21/2022 Have You Used IV Drugs? No Information not available 03/21/2022 Sex: Unknown Functional Status Question Answer Note LastModified by [employer] Details LastModified Time Do you use any illicit or recreational drugs? No Information not available 03/21/2022 What is your level of alcohol consumption? Occasional Information not available 03/21/2022 Are you able to walk? YESWOREST Information not available 03/21/2022 What is your exercise level? Moderate Information not available 03/21/2022 Mental Status None recorded. Family History Nothing Reported Notes:Brother: Diabetes rosa itus Father: Cancer, lung Maternal aunt: Diabetes mellitus Maternal grandmother: Cancer, colon, Diabetes mellitus Mother: Diabetes mellitus, Cancer, lung Medical History Condition Response Allergies (Food, seasonal, environmental ) N Other N Blood Transfusion N Drug/Latex Allergies/Reactions N Breast Cancer N Dermatologic Disorders N Lung Disease N Defects or Inherited Disease N Breast Problem N Gestational Diabetes N Hematologic disorders N Anesthesia Complications N History of STI N Deep Vein Thrombosis N Polycystic ovary syndrome N Anxiety Disorder N Autoimmune disease N Arthritis N Infertility N Polyps N Acid Reflux (GERD) N History of abnormal pap N Cancer N Stroke N Varicosities N Neurologic/Epilepsy N Endometriosis N High Cholesterol N Headaches N Fibromyalgia N Kidney Disease N Heart Problems N Kidney or Bladder Problems N Thyroid Problems N GI Problems N Eating Disorder N Anemia N Art (IVF or FET) N Psychiatric Illness N Ovarian Cancer N Diabetes N Pulmonary (TB, Asthma) N Hepatitis/Liver Disease N No Past Medical History N Eczema N Urinary Tract Infection N Abuse/Domestic Violence N Asthma N Trauma/Violence N Depression/ depression N Heart Disease N Pre-Eclampsia N Hypertension N Osteoporosis N Thrombophilias N Gynecological History Statement/Question Response Date of Last Pap Smear 01/07/2019 Current Control Method Hysterectom y N Obstetrics History GPAL:G 1 P 0 0 1 0 Type Value Ectopics 1 Total 1 Past Encounters Encounter ID Performer Location Encounter Start Date Encounter Closed Date Diagnosis/Indication Diagnosis SNOMED-CT Code Diagnosis ICD10 Code Diagnosis Note [id number] Juliane Fishman MD [place] [address] [address] 03/13/2021 12:34:01 03/13/2021 13:25:05 Candidiasis of vulva 7517473 B37.3 Venereal d isease screening 927772954 Z11.3 [id number] Juliane Fishman MD [place] [address] [address] 04/07/2021 12:21:00 04/07/2021 14:07:07 Herpes simplex 33232694 B00.9 Gynecologi c examination 33453810 Z01.419 [id number] Juliane Fishman MD [place] [address] [address] 07/03/2021 09:26:22 07/03/2021 10:16:45 Pruritus of vulva 51751224 L29.2 [id number] [facility] [address] [address] 03/21/2022 14:19:41 04/02/2022 16:03:29 Eczema 63305778 L30.9 Stop Clobetasol ointment & switch to ointment sent in today that treats eczema.Jairo l do short course & re-evaluat e use.Will call if additional treatment needed. Counseled on medication R/B's, Most common side effects, & use. All questions were answered to patient satisfacti on. Atrophic vaginitis 04781 000 N95.2 Trial of Osphena sentWill see if affordable option vs cream she has been using. Time spent in visit is a total of 22 mins with at least 50% of visit consisting of counseling and review of plan of care. Health Concerns Section Related Observation LastModified by Organization Detai ls LastModified Time None Recorded Concern Status LastModified by Organization Details LastModified Time None Recorded Advance Directives Directive None Recorded Payers Insurance Date Sequence Insurance Name Policy Number Policy Rosenbaum Covered Member ID Rosenbaum Member ID Guarantor Name 03/13/2021 1 [employer] BETTER [employer] [place] - DOS ON OR AFTER 2020 (MEDICAID REPLACEMENT - HMO) Arabella Newby [id number] Arabella Newby 03/21/2022 1 [employer] (MEDICARE REPLACEMENT/A DVANTAGE - PPO) [id number] Arabella Newby [id number] Arabella Newby 04/04/2022 2 [employer] (MEDICARE REPLACEMENT/A DVANTAGE - HMO) [id number] Arabella Newby [id number] Arabella Newby 04/04/2022 1 [employer] (MEDICARE REPLACEMENT HMO) [id number] Arabella Newby [id number] Arabella Newby Notes Date Note Type Note Provider Name and Address Organization Details Recorded Time 03/13/2021 text/html Pt is a 66yo her e complaining of symptoms of a vaginal infection. Symptoms include one week of severe swelling and irritation and itching of vulva. Diabetic on jardiance. Tried monistat 3, burned too much. PCP gave her diflucan x3, took 2 so far. SX are much improved, but she also wants std testing because in a new relationship.. Denies abnormal discharge or vulvar lesions. Additional concerns: sexually active:y contraception:menopa use, hyst Last annual exam: 2+ years, scheduled next month Juliane Fishman MD [address], [place], [address], [facility] 03/13/2021 13:15:22 04/07/2021 text/html Patient is a 66y o who presents for an annual exam. JULIO CESAR/BSO in 1999 for abnormal paps. Paps done since then- all normal for 20 years. Needs valtrex refills for oral HSV. STD tesitng neg last month. Also treated for yeast last month, seemed to clear up, now itching and irritated again. last pap-2019 mammo-2019 colonoscopy-10 years, PCP ordering dexa-2018 sexually active-y seatbelts-y exercise-y depression-denies domestic violence-denies tobacco-y concerns-none Juliane Fishman MD [address], [place], [address], [facility] 04/07/2021 14:02:30 07/03/2021 text/html Here for vulvar bx. Estrace not working. Still worried it is yeast from jardiance. Juliane Fishman MD [address], [place], [address], [facility] 07/03/2021 09:58:50 03/21/2022 text/html Vaginal/Vulvar ProblemReported bypatient.Location:v ulva Onset/Timing:abrupt Duration:present for 1-7 days Quality:itching; Hx of eczema Severity:mild Context:not sexually active; history of vaginal atrophy Alleviating Factors:none Aggravating Factors:tight fitting clothing Associated Symptoms:no vaginal itching; no vaginal irritation; no vaginal pain; no vulvar pain; no vulvar lesions; no pelvic pain; no dyspareunia; no dysuria; no fever; no abdominal pain;vulvar itching/irritation;v ulvar swelling/erythema EFRAÍN Ingram- [address], [place], [address], [facility] 04/02/2022 13:23:01 OBGyn Episode Ob Episode Information Episode Created Date Number of Fetuses Patient Bloodtype Patient rh Status Prepregnancy Weight lbs Domestic Partner Domestic Partner Phone Father Name Optical Instrument Repairer Status 03/10/20 21 1 CLOSED Fetus Data First Name Last Name Admitted to NICU Weight (g) Sex Living Outcome Pediatric Complications Fetus ID Race Codes Race Delivery Type Ectopic [id number] Miguel Calculation Initial Miguel Date Initial Exam Date Initial Exam Provider Initial Ultrasound Date Last Menstrual Period Date Ultra Sound Weeks Gestation 0 Eighteen To Twenty Week Miguel Update Ultra Sound Date Fundal Height At Umbil Quickening Date Ultra Sound Latest Weeks Gestation Final Miguel Confirmed By Final Miguel Confirmed Date Final Miguel Date Ultra Sound Latest Days Gestation 0 0 Menstrual History Last Menstrual Date Menses Monthly On Bcp Conception Prior Menses Frequency Hcg Plus Date Menarche Onset Age Delivery Information Delivery Date Delivery Type Labor Anesthesia Weeks Gestation Incision Type Labor Labor Length Hrs Delivered By Post Complications Tubal Sterilization Discharge Date Comments 4 Discharge Information Feeding Method Contraceptive Method Maternal HG B and HCT Levels
== END 2025-01-19 14:06 | disposition home or self-care (01) ==
PROVIDERS: PCP Physician Assistant; Visit Provider Physician Assistant
DX: R20.9 Unspecified disturbances of skin sensation (principal); E11.59 Type 2 diabetes mellitus with other circulatory complications
CPT/HCPCS: 93922